=== PATIENT | male | born 1995 | race Caucasian/White ===

== ENCOUNTER 2017-06-26 14:19 | Emergency (ER) | payer OTHER ==
[~2017-06-26] VITALS: Ht 185.4 cm; Wt 110.0 kg
[2017-06-26 14:27] VITALS: Ht 185.4 cm; Wt 110.0 kg
[2017-06-26] MEDS ORDERED: SODIUM CHLORIDE 0.9% 1000ML 2,000 ML IV STA (14:59)
[2017-06-26] MEDS ORDERED: PROCHLORPERAZINE 5 MG/ML 2 ML VIAL IV STA (14:59)
[2017-06-26] MEDS ORDERED: ACETAMINOPHEN 500 MG TAB PO STA (14:59)
[2017-06-26 15:45] LABS: INFLUENZA B ANTIGEN Neg for Influ B (NEG)
[2017-06-26 15:50] VITALS: O2SAT 100
--- NOTE | 2017-06-26 16:24 | DIAGNOSTIC IMAGING REPORT ---
CT SCAN OF THE BRAIN WITHOUT IV CONTRAST CLINICAL HISTORY: Migraine headache. COMPARISON STUDY: No priors. TECHNIQUE: Unenhanced axial CT scan of the brain is performed from the vertex to the skull base. A dose lowering technique was utilized adhering to the principles of ALARA. CT DOSE: 687.98 mGy.cm FINDINGS: Brain parenchyma: The brain parenchyma is normal in appearance. There is no hemorrhage, mass effect, or evidence of acute territorial ischemia by CT criteria. Forbes-white matter is preserved. No extra-axial fluid collection is seen. Ventricles, sulci, cisterns: Normal in configuration. Intracranial vasculature: The visualized intracranial vasculature at the skull base is normal in appearance. Calvarium: Unremarkable. Sinuses and mastoids: The visualized paranasal sinuses are clear. The mastoid air cells are well pneumatized. Orbits: The bony orbits are grossly intact. IMPRESSION: No acute intracranial abnormality. Electronically signed by: Angel Braxton M.D. 06/26/2017 4:23 PM Dictated Date/Time: 06/26/2017 4:22 PM
[2017-06-26] MEDS ORDERED: KETOROLAC TROMETHAMINE 30 MG/ML VIAL IV STA (16:55)
--- NOTE | 2017-06-26 16:59 | DIAGNOSTIC IMAGING REPORT ---
TWO VIEW CHEST CLINICAL HISTORY: Pneumonia. FINDINGS: PA and lateral chest radiographs are obtained No prior studies are available for comparison at the time of dictation. The cardiomediastinal silhouette is unremarkable. The lungs and pleural spaces are clear. There is no pneumothorax. The bony thorax appears intact. IMPRESSION: No active disease in the chest. Electronically signed by: Angel Braxton M.D. 06/26/2017 4:58 PM Dictated Date/Time: 06/26/2017 4:57 PM
[2017-06-26 17:07] LABS: HEMATOCRIT 35.8 % (42-52); MEAN CELL VOLUME 85.9 fL (80-100); MEAN CORPUSCULAR HEMOGLOBIN 28.8 pg (25-34); MEAN CORPUSCULAR HGB CONC 33.5 g/dl (32-36); RED CELL DISTRIBUTION WIDTH CV 13.4 % (11.5-14.5); RED CELL DISTRIBUTION WIDTH SD 42.4 fL (36.4-46.3); WHITE BLOOD COUNT 3.68 K/uL (4.8-10.8)
[2017-06-26 17:15] LABS: ALBUMIN 3.5 gm/dl (3.4-5.0); CALCIUM 8.1 mg/dl (8.5-10.1); CREATININE 1.01 mg/dl (0.60-1.40); MEAN PLATELET VOLUME 11.5 fL (7.4-10.4); PLATELET COUNT 104 K/uL (130-400); POTASSIUM 3.2 mmol/L (3.5-5.1)
--- NOTE | 2017-06-26 17:15 | EMERGENCY ROOM VISIT NOTE ---
ED Visit Note First contact with patient: 14:48 CHIEF COMPLAINT: Headache, dizziness, shortness of breath HISTORY OF PRESENTING ILLNESS: This is a 22-year-old male who presents to the emergency department with complaint of a headache that started last night around 6 PM. He states the headache was gradual in onset, and has gotten progressively worse. States the pain involves the whole head and behind the eyes, worse with moving his head side to side, currently rates as 10/10. He took ibuprofen last night, which he states usually takes care of his headaches, but he did not have much improvement in the headache. He has had URI symptoms of cough, sore throat, and congestion for the past 2 days and has also had some fevers and chills starting last night. He states he has been feeling weak and tired today as well. He has associated symptoms of photophobia, nausea, and dizziness, but denies passing out. He has not had any vomiting. He reports a history of migraines as a child, although he states his last one was about 3 years ago, he states this headache is similar to previous migraines but seems worse than usual. He denies any neck pain or stiffness, back pain, body aches or myalgias, chest pain, shortness of breath, abdominal pain, diarrhea or constipation, bloody or black stools, or urinary symptoms. He is up-to-date on immunizations per his mother, who states he did have the meningitis vaccine. He did not have a flu shot. He has not taken any medications today for his symptoms. REVIEW OF SYSTEMS: A complete 10 point review of systems was reviewed with the patient with pertinent positives and negatives as per history of present illness. All else were negative. PAST MEDICAL HISTORY: Migraines SOCIAL HISTORY: Lives at home. Denies tobacco use, alcohol or recreational drug use. ALLERGIES: No known allergies. PHYSICAL EXAM: CONSTITUTIONAL: Pleasant and cooperative. No acute distress, but appears uncomfortable and in pain. Moderately dehydrated. Pale. HEENT: Normocephalic, atraumatic. PERRL, EOMI with no nystagmus, bilateral conjunctiva normal. TMs normal. Pharynx normal. Dry mucous membranes. NECK: Supple, full active range of motion without discomfort. No nuchal rigidity. No meningismus. No cervical adenopathy. RESPIRATORY: Diminished bilaterally with scant rhonchi, these clear with coughing. No wheezing, crackles, or stridor. Equal expansion bilaterally. CARDIOVASCULAR: Tachycardic. Regular rhythm with no murmurs, rubs or gallops. Normal peripheral perfusion. No edema. GASTROINTESTINAL: Soft, nontender, nondistended. No palpable masses or HSM. Bowel sounds present in all quadrants. MUSCULOSKELETAL: Full range of motion of all joints without discomfort. INTEGUMENTARY: No rash or other significant dermatologic conditions noted. NEUROLOGIC: Alert and oriented X 4 with normal affect. Cranial nerves II-XII grossly intact. No focal neurologic deficits noted. 5/5 strength in all 4 extremities. Sensation intact to light touch in all 4 extremities. Normal speech. ED COURSE AND MEDICAL DECISION MAKING: CC: Patient presenting with complaint of headache, dizziness, shortness of breath DIFFERENTIAL DIAGNOSIS: Includes, but not limited to migraine, tension headache , acute intracranial bleed, meningitis, mass or mass effect, sinusitis, pulmonary embolism, pneumothorax, pericarditis, pericardial effusion, pneumonia , dehydration, electrolyte abnormality, anemia, viral URI, bronchitis, influenza , among others. INTERPRETATION OF LABS: Leukopenia, anemia, thrombocytopenia. Hypokalemia with hypomagnesemia, no other significant electrolyte abnormalities, normal renal function, normal liver enzymes and lipase. Influenza A/B negative. Lactic acid WNL. UA shows large ketones, no infection. IMAGING: CT SCAN OF THE BRAIN WITHOUT IV CONTRAST CLINICAL HISTORY: Migraine headache. COMPARISON STUDY: No priors. TECHNIQUE: Unenhanced axial CT scan of the brain is performed from the vertex to the skull base. A dose lowering technique was utilized adhering to the principles of ALARA. CT DOSE: 687.98 mGy.cm FINDINGS: Brain parenchyma: The brain parenchyma is normal in appearance. There is no hemorrhage, mass effect, or evidence of acute territorial ischemia by CT criteria. Forbes-white matter is preserved. No extra-axial fluid collection is seen. Ventricles, sulci, cisterns: Normal in configuration. Intracranial vasculature: The visualized intracranial vasculature at the skull base is normal in appearance. Calvarium: Unremarkable. Sinuses and mastoids: The visualized paranasal sinuses are clear. The mastoid air cells are well pneumatized. Orbits: The bony orbits are grossly intact. IMPRESSION: No acute intracranial abnormality. ----- TWO VIEW CHEST CLINICAL HISTORY: Pneumonia. FINDINGS: PA and lateral chest radiographs are obtained No prior studies are available for comparison at the time of dictation. The cardiomediastinal silhouette is unremarkable. The lungs and pleural spaces are clear. There is no pneumothorax. The bony thorax appears intact. IMPRESSION: No active disease in the chest. ----- (CHEST FOR PE) ANGIO WITH CT DOSE: 596.46 mGy.cm HISTORY: 22 years-old Male presents with acute headache, nausea, tachycardia and shortness of breath TECHNIQUE: Multiple CTA images of the chest were obtained after the intravenous administration of 93 ml Optiray 320. Coronal and sagittal MIPS were obtained from the axial data set and were submitted for review. A dose lowering technique was utilized adhering to the principles of ALARA. COMPARISON: Chest radiographs 06/26/2017 FINDINGS: CTA: There is adequate opacification of the pulmonary arteries to the level of the lobar branches without convincing evidence of acute pulmonary embolism. Segmental and subsegmental branches are not well opacified. The thoracic aorta is normal in both course and caliber without dissection or aneurysm.Heart size is normal. CT CHEST: No dominant thyroid nodule is seen. Mild residual thymic tissue. No pathologically adenopathy by CT size criteria. There is no pneumothorax or pleural effusion. Dependent subsegmental opacities suggest atelectasis. No lobar airspace consolidation to suggest pneumonia. Central airways are patent. Mild splenomegaly, 14 cm. No acute process of the imaged upper abdomen identified. Mild bilateral gynecomastia. Bones appear intact. IMPRESSION: 1. No acute intrathoracic abnormality identified, specifically no acute aortic pathology or evidence of pulmonary thromboembolic disease. 2. Mild hepatomegaly. EKG: Shows sinus tachycardia with a rate of 120bpm, no acute ischemic changes noted by my interpretation. No previous EKG available for comparison. MEDICATION RECONCILIATION: I attest that I have personally reviewed the patient 's current medication list. INITIAL VITAL SIGNS REVIEW: I reviewed the patient's initial vital signs and interpret them as follows: T: Febrile; BP: Hypotensive; HR: Tachycardic; RR: Within normal limits; Pulse Ox: Within normal limits on room air. SUMMARY: Patient was evaluated at bedside, history and physical exam performed. Patient is alert and oriented, in no acute distress but does appear uncomfortable, noted to be moderately dehydrated and appears pale. Patient is noted to be febrile, tachycardic, and hypotensive on initial vital signs. Patient complaining of headache that is similar to previous migraines. Neurologic exam is intact with no focal deficits. There is no nuchal rigidity or meningismus on exam. EKG reviewed at bedside, noting sinus tachycardia without any ischemic changes. Orders were placed at bedside for labs, UA, blood cultures 2, 2 L IV fluid bolus, Tylenol for fever, IV Compazine for headache, chest x-ray and CT of the head to evaluate for cough/shortness of breath and headache. Patient discussed with Dr. Kirk, who agrees with my assessment and plan. Labs and imaging reviewed as above, notable for pancytopenia, hypokalemia and hypomagnesemia. Imaging is unremarkable. Replacement potassium and magnesium ordered. IV Toradol given for additional headache and fever management. On reassessment, the patient states he is feeling much better, states that he no longer has any shortness of breath. His headache is fully resolved after medications. He is defervescing appropriately after Tylenol and Toradol. He continues to have no complaints of neck pain, and no neck stiffness on repeat exam. My suspicion for meningitis at this time is very low. He is noted to be persistently tachycardic with rates in the 120s and hypotensive. He does still feel dizzy especially when he sits up or stands. Given patient's persistent tachycardia and his complaints of shortness of breath and dizziness, decision was made to perform CT of the chest to rule out PE. Bedside cardiac ultrasound was also performed, there is no evidence of a pericardial effusion, no right ventricular enlargement noted, mitral valve function appears intact and normal, overall myocardial contraction appears uniform and within normal limits by my interpretation. CT of the chest reviewed, no evidence of a PE or any other abnormalities. Patient was given a third liter of normal saline for additional hydration. Patient reassessed multiple times throughout ED stay, he remains persistently tachycardic with heart rates in the 120s-130s, though his hypotension has improved somewhat. Overall, the patient is feeling much better, but is still generally weak and slightly dizzy. Given his complaint of URI symptoms, I suspect he most likely has a viral respiratory illness. Influenza A/B is noted to be negative. Given the patient's persistent tachycardia after 3 L of fluid bolus, with pancytopenia and electrolyte abnormalities, I feel the patient would benefit from admission for further evaluation, continued hydration, and repeat labs. I [facility], who was consulted to evaluate the patient for possible admission. He gave the patient a dose of ibuprofen for fever, and ordered additional testing for Parvovirus and EBV. The patient was reassessed multiple times, noting to be completely afebrile, but is still persistently tachycardic in the 120s. The patient was offered admission overnight by Dr. Lange, however the patient now states that he would prefer to go home. He continues to appear improved clinically, and has not had any return of his headache or dizziness. Case management was involved to assist the patient in being set up for follow- up with the primary care provider. The patient was instructed that he would need to have repeat labs ordered by his PCP. Patient and his mother were updated on all results and plan for follow-up, they verbalized understanding and were agreeable to this plan. Patient was also given strict return precautions should his symptoms worsen in any way, he verbalized understanding. Patient was discharged home in stable condition and ambulatory. Current/Historical Medications No Active Prescriptions or Reported Meds Allergies Coded Allergies: No Known Allergies (Unverified , 06/26/17) Vital Signs Date Time Temp Pulse Resp B/P (MAP) Pulse Ox O2 Delivery O2 Flow Rate FiO2 06/26/17 23:30 102 18 130/78 97 06/26/17 23:00 107 18 135/74 06/26/17 22:30 37.0 120 22 118/60 98 Room Air 06/26/17 21:49 37.5 126 22 118/73 100 Room Air 06/26/17 21:02 125 24 120/79 100 Room Air 06/26/17 20:54 115 06/26/17 20:32 112 18 124/66 100 Room Air 06/26/17 18:32 115 22 105/49 100 Room Air 06/26/17 17:00 37.6 119 24 101/41 95 Room Air 06/26/17 16:55 113 06/26/17 16:10 123 18 106/51 98 Room Air 06/26/17 15:50 100 Room Air 06/26/17 14:27 38.2 126 20 96/51 99 Room Air Laboratory Results 06/26/17 16:37 Red Blood Count 4.17, Mean Corpuscular Volume 85.9, Mean Corpuscular Hemoglobin 28.8, Mean Corpuscular Hemoglobin Concent 33.5, Mean Platelet Volume 11.5, Neutrophils (%) (Auto) 76.6, Lymphocytes (%) (Auto) 9.5, Monocytes (%) (Auto) 12.8, Eosinophils (%) (Auto) 0.0, Basophils (%) (Auto) 0.3, Neutrophils # (Auto ) 2.82, Lymphocytes # (Auto) 0.35, Monocytes # (Auto) 0.47, Eosinophils # (Auto ) 0.00, Basophils # (Auto) 0.01 06/26/17 16:37 Test 06/26/17 15:21 06/26/17 16:37 06/26/17 16:40 06/26/17 18:36 Influenza Type A Antigen Neg for Influ A (NEG) Influenza Type B Antigen Neg for Influ B (NEG) White Blood Count 3.68 K/uL (4.8-10.8) Red Blood Count 4.17 M/uL (4.7-6.1) Hemoglobin 12.0 g/dL (14.0-18.0) Hematocrit 35.8 % (42-52) Mean Corpuscular Volume 85.9 fL (80-100) Mean Corpuscular Hemoglobin 28.8 pg (25-34) Mean Corpuscular Hemoglobin Concent 33.5 g/dl (32-36) Platelet Count 104 K/uL (130-400) Mean Platelet Volume 11.5 fL (7.4-10.4) Neutrophils (%) (Auto) 76.6 % Lymphocytes (%) (Auto) 9.5 % Monocytes (%) (Auto) 12.8 % Eosinophils (%) (Auto) 0.0 % Basophils (%) (Auto) 0.3 % Neutrophils # (Auto) 2.82 K/uL (1.4-6.5) Lymphocytes # (Auto) 0.35 K/uL (1.2-3.4) Monocytes # (Auto) 0.47 K/uL (0.11-0.59) Eosinophils # (Auto) 0.00 K/uL (0-0.5) Basophils # (Auto) 0.01 K/uL (0-0.2) RDW Standard Deviation 42.4 fL (36.4-46.3) RDW Coefficient of Variation 13.4 % (11.5-14.5) Immature Granulocyte % (Auto) 0.8 % Immature Granulocyte # (Auto) 0.03 K/uL (0.00-0.02) Platelet Estimate DECREASED Anion Gap 8.0 mmol/L (3-11) Est Creatinine Clear Calc Drug Dose 150.4 ml/min Estimated GFR () 122.7 Estimated GFR (Non- 105.8 BUN/Creatinine Ratio 11.7 (10-20) Calcium Level 8.1 mg/dl (8.5-10.1) Magnesium Level 1.4 mg/dl (1.8-2.4) Total Bilirubin 0.6 mg/dl (0.2-1) Direct Bilirubin 0.1 mg/dl (0-0.2) Aspartate Amino Transf (AST/SGOT) 17 U/L (15-37) Alanine Aminotransferase (ALT/SGPT) 15 U/L (12-78) Alkaline Phosphatase 57 U/L (45-117) Total Protein 6.6 gm/dl (6.4-8.2) Albumin 3.5 gm/dl (3.4-5.0) Lipase 141 U/L (73-393) Thyroid Stimulating Hormone (TSH) 0.344 uIu/ml (0.300-4.500) Monoscreen NEG (NEG) Bedside Lactic Acid Venous 1.46 mmol/L (0.90-1.70) Urine Color YELLOW Urine Appearance CLEAR (CLEAR) Urine pH 5.5 (4.5-7.5) Urine Specific [place] 1.016 (1.000-1.030) Urine Protein NEG (NEG) Urine Glucose (UA) NEG (NEG) Urine Ketones 3+ (NEG) Urine Occult Blood NEG (NEG) Urine Nitrite NEG (NEG) Urine Bilirubin NEG (NEG) Urine Urobilinogen NEG (NEG) Urine Leukocyte Esterase NEG (NEG) Medications Administered Medications (Trade) Dose Ordered Sig/Elizabeth Route Start Time Stop Time Status Last Admin Dose Admin Acetaminophen (Tylenol Tab) 1,000 mg NOW STAT PO 06/26/17 14:59 06/26/17 15:03 DC 06/26/17 15:41 1,000 MG Sodium Chloride 2,000 ml @ 999 mls/hr Q2H1M STAT IV 06/26/17 14:59 06/26/17 16:59 DC 06/26/17 16:08 999 MLS/HR Prochlorperazine Edisylate (Compazine Inj) 10 mg NOW STAT IV 06/26/17 14:59 06/26/17 15:03 DC 06/26/17 16:08 10 MG Ketorolac Tromethamine (Toradol Inj) 15 mg NOW STAT IV 06/26/17 16:55 06/26/17 16:56 DC 06/26/17 17:00 15 MG Sodium Chloride 1,000 ml @ 999 mls/hr Q1H1M STAT IV 06/26/17 19:22 06/26/17 20:22 DC 06/26/17 19:22 999 MLS/HR Potassium Chloride (Kcl 10 Meq / Wtr) 20 meq NOW STAT IV 06/26/17 19:23 06/26/17 19:24 DC 06/26/17 20:31 20 MEQ Magnesium Sulfate (Magnesium Sulfate) 2 gm NOW STAT IV 06/26/17 19:24 06/26/17 19:25 DC 06/26/17 20:31 2 GM Ibuprofen (Motrin Tab) 600 mg STK-MED ONCE .ROUTE 06/26/17 21:46 06/26/17 21:47 DC 06/26/17 21:48 600 MG Departure Information Impression Primary Impression: Migraine Additional Impressions: Tachycardia Hypokalemia Hypomagnesemia Pancytopenia Dehydration, moderate Dispostion Home / Self-Care Condition GOOD Prescriptions No Active Prescriptions or Reported Meds Referrals No Doctor, Assigned (PCP) Patient Instructions ED Dehydration, ED Headache Migraine, ED Potassium Deficiency, [facility] Additional Instructions You were evaluated and treated in the emergency department today for your headache, cough and shortness of breath, fevers, and dehydration. On labs today, you were found to have low potassium, low magnesium, dehydration , and pancytopenia (low white blood cells, low red blood cells, and low platelets). You were found to be quite dehydrated today, continue to push fluids for the next 2 days to help yourself rehydrate. Some suggestions include: - Water is the IDEAL replacement for lost fluids. You should initially sip at the water to help facilitate increased intestinal absorption rate and to decrease the possibility of nausea/vomiting. - Carbohydrate/Electrolyte-Containing Drinks (i.e. Gatorade, Powerade, Pedialyte). All of these are good choices, but it is important to remember that all of these drinks contain a high concentration of sugar. - Popsicles, ice chips, and fruit juices are all other options. - My FAVORITE dehydration remedy is to mix a 1:1 solution of bottled Gatorade with bottled water. This dilution allows for a palatable flavor with added benefit of a reduction in the amount of sugar consumption. Rest today in a quiet, peaceful, dark environment and get a full 8-10 hrs of sleep tonight. Avoid loud noises, smoke/smoking, alcohol, bright lights, stress, or physical exertion today to minimize the chance the headache may return. You may take ibuprofen and/or Tylenol as needed for fevers and headaches. Please follow-up with the primary care provider at the next available appointment. You will need to have repeat blood work ordered by your PCP, which should include a CBC with differential and a BMP. Take this paperwork with you to your appointment. Please return to the ER immediately for any worsening dizziness or passing out, worsening headache, vision problems, neck stiffness/pain, persistent fevers, severe vomiting, chest pain or difficulty breathing, or any other concerns or worsening of your condition. Work Instructions Return To Work: 3 days Problem Qualifiers Primary Impression: Migraine Migraine type: unspecified Status migrainosus presence: without status migrainosus Intractability: not intractable Qualified Codes: G43.909 - Migraine, unspecified, not intractable, without status migrainosus
[2017-06-26 17:17] LABS: BASO % 0.3 %; BASO ABS # 0.01 K/uL (0-0.2); IG# 0.03 K/uL (0.00-0.02); LYMPH % 9.5 %; LYMPH ABS # 0.35 K/uL (1.2-3.4); MONO % 12.8 %; MONO ABS # 0.47 K/uL (0.11-0.59); NEUT % 76.6 %; NEUT ABS # 2.82 K/uL (1.4-6.5)
[2017-06-26 17:18] LABS: TOTAL PROTEIN 6.6 gm/dl (6.4-8.2)
[2017-06-26] MEDS ORDERED: SODIUM CHLORIDE 0.9% 1000ML 1,000 ML IV STA (19:22)
[2017-06-26] MEDS ORDERED: POTASSIUM CHLORIDE 10 MEQ / 100ML WTR IV STA (19:23)
[2017-06-26] MEDS ORDERED: MAGNESIUM SULFATE 1GM / D5W 1 GM BAG IV STA (19:24)
[2017-06-26] MEDS ORDERED: OPTIRAY 320 IV PRN (19:30)
--- NOTE | 2017-06-26 20:29 | DIAGNOSTIC IMAGING REPORT ---
(CHEST FOR PE) ANGIO WITH CT DOSE: 596.46 mGy.cm HISTORY: 22 years-old Male presents with acute headache, nausea, tachycardia and shortness of breath TECHNIQUE: Multiple CTA images of the chest were obtained after the intravenous administration of 93 ml Optiray 320. Coronal and sagittal MIPS were obtained from the axial data set and were submitted for review. A dose lowering technique was utilized adhering to the principles of ALARA. COMPARISON: Chest radiographs 06/26/2017 FINDINGS: CTA: There is adequate opacification of the pulmonary arteries to the level of the lobar branches without convincing evidence of acute pulmonary embolism. Segmental and subsegmental branches are not well opacified. The thoracic aorta is normal in both course and caliber without dissection or aneurysm.Heart size is normal. CT CHEST: No dominant thyroid nodule is seen. Mild residual thymic tissue. No pathologically adenopathy by CT size criteria. There is no pneumothorax or pleural effusion. Dependent subsegmental opacities suggest atelectasis. No lobar airspace consolidation to suggest pneumonia. Central airways are patent. Mild splenomegaly, 14 cm. No acute process of the imaged upper abdomen identified. Mild bilateral gynecomastia. Bones appear intact. IMPRESSION: 1. No acute intrathoracic abnormality identified, specifically no acute aortic pathology or evidence of pulmonary thromboembolic disease. 2. Mild hepatomegaly. The above report was generated using voice recognition software. It may contain grammatical, syntax or spelling errors. Electronically signed by: Storm Chan M.D. 06/26/2017 8:28 PM Dictated Date/Time: 06/26/2017 8:22 PM
[2017-06-26] MEDS ORDERED: IBUPROFEN 600 MG TAB ONE (21:46)
[2017-06-26] MEDS ORDERED: IBUPROFEN 600 MG TAB PO STA (22:08)
--- NOTE | 2017-06-26 22:21 | History and Physical ---
History & Physical Date & Time of Service: Jun 26, 2017 at 22:04 Chief Complaint: Severe Headache, Vertigo, Nausea Primary Care Physician: No Doctor, Assigned History of Present Illness Source: patient 22 y/o M history of migraine headaches. The pt developed a fever, rigors, and upper respiratory symptoms earlier in the day. His fever persisted as did his MORENO, prompting him to attend the hospital. The pt's MORENO was comparable to previous migraines and was not accompanied by neck pain/stiffness or photophobia. His MORENO responded to analgesics provided in the ER. A fever was confirmed on arrival to the hospital. Initial labs are notable for mild pancytopenia in addition to mild hypokalemia and hypomagnesemia. The pt denies any recent sick contacts. 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 Smoking Status: Never Smoker Allergies Coded Allergies: No Known Allergies (Unverified , 06/26/17) Home Medications No Active Prescriptions or Reported Meds Review of Systems Constitutional: + fever, + chills, + sweats, + weakness, + fatigue Eyes: No worsening of vision ENT: No hearing loss, No unusual epistaxis, No nasal symptoms Respiratory: + cough, + sputum, No wheezing, No shortness of breath Cardiovascular: No chest pain, No orthopnea, No PND Abdomen: No pain, No nausea, No vomiting Musculoskeletal: No joint pain Genitourinary - Male: No hematuria, No dysuria Neurologic: No memory loss, No paralysis, No weakness Psychiatric: No depression symptoms Endocrine: + fatigue Hematologic / Lymphatic: No abnormal bleeding/bruising Integumentary: No rash Allergic / Immunologic: No environmental allergies Physical Exam Vital Signs Date Time Temp Pulse Resp B/P (MAP) Pulse Ox O2 Delivery O2 Flow Rate FiO2 06/26/17 21:02 125 24 120/79 100 Room Air 06/26/17 20:54 115 06/26/17 20:32 112 18 124/66 100 Room Air 06/26/17 18:32 115 22 105/49 100 Room Air 06/26/17 17:00 37.6 119 24 101/41 95 Room Air 06/26/17 16:55 113 06/26/17 16:10 123 18 106/51 98 Room Air 06/26/17 15:50 100 Room Air 06/26/17 14:27 38.2 126 20 96/51 99 Room Air General Appearance: WD/WN, no apparent distress Head: normocephalic Eyes: normal inspection ENT: normal ENT inspection, pharynx normal Neck: supple, no JVD Respiratory/Chest: chest non-tender, lungs clear Cardiovascular: no edema, no gallop, no JVD, + tachycardia Abdomen/GI: normal bowel sounds, non tender, soft Back: normal inspection, no CVA tenderness Extremities/Musculoskelatal: normal inspection, no calf tenderness, normal capillary refill Neurologic/Psych: family law paralegal II-XII nml as tested, no motor/sensory deficits, alert, oriented x 3 Skin: normal color Diagnostics Laboratory Results Results Past 24 Hours Test 06/26/17 15:21 06/26/17 16:37 06/26/17 16:40 06/26/17 18:36 Range/Units Influenza Type A Antigen Neg for Influ A NEG Influenza Type B Antigen Neg for Influ B NEG White Blood Count 3.68 4.8-10.8 K/uL Red Blood Count 4.17 4.7-6.1 M/uL Hemoglobin 12.0 14.0-18.0 g/dL Hematocrit 35.8 42-52 % Mean Corpuscular Volume 85.9 80-100 fL Mean Corpuscular Hemoglobin 28.8 25-34 pg Mean Corpuscular Hemoglobin Concent 33.5 32-36 g/dl Platelet Count 104 130-400 K/uL Mean Platelet Volume 11.5 7.4-10.4 fL Neutrophils (%) (Auto) 76.6 % Lymphocytes (%) (Auto) 9.5 % Monocytes (%) (Auto) 12.8 % Eosinophils (%) (Auto) 0.0 % Basophils (%) (Auto) 0.3 % Neutrophils # (Auto) 2.82 1.4-6.5 K/uL Lymphocytes # (Auto) 0.35 1.2-3.4 K/uL Monocytes # (Auto) 0.47 0.11-0.59 K/uL Eosinophils # (Auto) 0.00 0-0.5 K/uL Basophils # (Auto) 0.01 0-0.2 K/uL RDW Standard Deviation 42.4 36.4-46.3 fL RDW Coefficient of Variation 13.4 11.5-14.5 % Immature Granulocyte % (Auto) 0.8 % Immature Granulocyte # (Auto) 0.03 0.00-0.02 K/uL Platelet Estimate DECREASED Sodium Level 135 136-145 mmol/L Potassium Level 3.2 3.5-5.1 mmol/L Chloride Level 106 98-107 mmol/L Carbon Dioxide Level 21 21-32 mmol/L Anion Gap 8.0 3-11 mmol/L Blood Urea Nitrogen 12 7-18 mg/dl Creatinine 1.01 0.60-1.40 mg/dl Est Creatinine Clear Calc Drug Dose 150.4 ml/min Estimated GFR () 122.7 Estimated GFR (Non- 105.8 BUN/Creatinine Ratio 11.7 10-20 Random Glucose 94 70-99 mg/dl Calcium Level 8.1 8.5-10.1 mg/dl Magnesium Level 1.4 1.8-2.4 mg/dl Total Bilirubin 0.6 0.2-1 mg/dl Direct Bilirubin 0.1 0-0.2 mg/dl Aspartate Amino Transf (AST/SGOT) 17 15-37 U/L Alanine Aminotransferase (ALT/SGPT) 15 12-78 U/L Alkaline Phosphatase 57 45-117 U/L Total Protein 6.6 6.4-8.2 gm/dl Albumin 3.5 3.4-5.0 gm/dl Lipase 141 73-393 U/L Monoscreen NEG NEG Bedside Lactic Acid Venous 1.46 0.90-1.70 mmol/L Urine Color YELLOW Urine Appearance CLEAR CLEAR Urine pH 5.5 4.5-7.5 Urine Specific Garber 1.016 1.000-1.030 Urine Protein NEG NEG Urine Glucose (UA) NEG NEG Urine Ketones 3+ NEG Urine Occult Blood NEG NEG Urine Nitrite NEG NEG Urine Bilirubin NEG NEG Urine Urobilinogen NEG NEG Urine Leukocyte Esterase NEG NEG Microbiology Results 06/26/17 Blood Culture, Received Pending 06/26/17 Blood Culture, Received Pending Diagnostic Radiology CTA: 1. No acute intrathoracic abnormality identified, specifically no acute aortic pathology or evidence of pulmonary thromboembolic disease. 2. Mild hepatomegaly. Impression Assessment and Plan 22 y/o M history of migraine headaches. The pt developed a fever, rigors, and upper respiratory symptoms earlier in the day. His fever persisted as did his MORENO, prompting him to attend the hospital. The pt's MORENO was comparable to previous migraines and was not accompanied by neck pain/stiffness or photophobia. His MORENO responded to analgesics provided in the ER. A fever was confirmed on arrival to the hospital. Initial labs are notable for mild pancytopenia in addition to mild hypokalemia and hypomagnesemia. The pt denies any recent sick contacts. The pt is likely suffering from a viral illness - his symptoms began as a URI and a chest CT is clear. Mild pancytopenia would not be unusual with a viral illness. Electrolyte abnormalities would be attributed to a fever, diaphoresis and subsequent dehydration. As the pt does not have a significant history and a bacterial infection or meningitis are unlikely, we believe it would be reasonable to pursue outpt treatment. We would recommend Tylenol and/or ibuprofen, maintaining hydration with an electrolyte drink and following up in a few days to recheck labs. If the pt's fevers persist, he is unable to tolerate PO and maintain hydration and he does not exhibit improvement, we would recommend that he return to the hospital. It is noted that due to his HR, the pt was offered admission for IVF and overnight monitoring. The pt does not wish to remain in the hospital. I have discussed the above with the pt, family and the ER attending. Please note that the above is a consult as the pt is discharged from the ER Resuscitation Status VTE Prophylaxis Will order VTE Prophylaxis: No Reason for no VTE drug order: Treatment not indicated Reason no Mechanical VTE Order: Treatment not indicated
[2017-06-26 22:30] VITALS: TEMP 37
[2017-06-26 23:54] VITALS: BP 130/78; PULSE 102; O2SAT 97
[2017-07-01 00:30] LABS: PARVOVIRUS IgM INDEX 0.2 (<0.9)
== END 2017-06-26 23:54 | disposition home or self-care (01) ==
LOC: C.EDB 14:22 → C.EDA 23:54
DX: G43.909 Migraine, unspecified, not intractable, without status migrainosus (principal); R00.0 Tachycardia, unspecified; E87.6 Hypokalemia; E83.42 Hypomagnesemia; D61.818 Other pancytopenia; E86.0 Dehydration; D69.6 Thrombocytopenia, unspecified; I95.9 Hypotension, unspecified

== ENCOUNTER → 2017-07-09 | Outpatient (CLI) | payer OTHER ==
[2017-07-09 17:25] LABS: BASO % 0.2 %; BASO ABS # 0.01 K/uL (0-0.2); EOS % 0.6 %; EOS ABS # 0.04 K/uL (0-0.5); HEMATOCRIT 41.2 % (42-52); HEMOGLOBIN 13.2 g/dL (14.0-18.0); IG# 0.02 K/uL (0.00-0.02); LYMPH % 24.3 %; LYMPH ABS # 1.59 K/uL (1.2-3.4); MEAN CELL VOLUME 88.2 fL (80-100); MEAN CORPUSCULAR HEMOGLOBIN 28.3 pg (25-34); MEAN PLATELET VOLUME 11.2 fL (7.4-10.4); MONO % 9.5 %; MONO ABS # 0.62 K/uL (0.11-0.59); NEUT % 65.1 %; NEUT ABS # 4.27 K/uL (1.4-6.5); PLATELET COUNT 218 K/uL (130-400); RED CELL DISTRIBUTION WIDTH CV 13.6 % (11.5-14.5); RED CELL DISTRIBUTION WIDTH SD 43.7 fL (36.4-46.3); WHITE BLOOD COUNT 6.55 K/uL (4.8-10.8)
[2017-07-09 17:26] LABS: BLOOD UREA NITROGEN 13 mg/dl (7-18); CALCIUM 8.9 mg/dl (8.5-10.1); CARBON DIOXIDE 29 mmol/L (21-32); CREATININE 0.88 mg/dl (0.60-1.40); GLUCOSE 89 mg/dl (70-99); POTASSIUM 3.9 mmol/L (3.5-5.1); SODIUM 140 mmol/L (136-145)
== END | disposition home or self-care (01) ==
LOC: C.LABBFT 13:39
PROVIDERS: ATTEND Internal Medicine
DX: D61.818 Other pancytopenia (principal); E83.42 Hypomagnesemia; E87.6 Hypokalemia; R16.0 Hepatomegaly, not elsewhere classified

== ENCOUNTER → 2017-07-10 | Outpatient (CLI) | payer OTHER ==
--- NOTE | 2017-07-10 10:18 | DIAGNOSTIC IMAGING REPORT ---
ABDOMINAL ULTRASOUND, RIGHT UPPER QUADRANT HISTORY: Hepatomegaly. COMPARISON: Chest CT June 26, 2017. FINDINGS: Liver morphology is normal. Liver is normal in size, measuring 13 cm in craniocaudal dimension. There is no biliary ductal dilatation. No gallstones are identified. The pancreatic body and head are normal. Tail is partially obscured. There is no right hydronephrosis. IMPRESSION: 1. No significant abnormality identified within the right upper quadrant. 2. Normal size liver. Electronically signed by: Ed Thompson M.D. 07/10/2017 10:16 AM Dictated Date/Time: 07/10/2017 10:15 AM
== END | disposition home or self-care (01) ==
LOC: C.ULTR 09:39
PROVIDERS: ATTEND Internal Medicine
DX: R16.0 Hepatomegaly, not elsewhere classified (principal)

== ENCOUNTER → 2017-08-02 | Outpatient (CLI) | payer OTHER ==
[2017-08-02 12:57] LABS: BASO % 0.2 %; BASO ABS # 0.01 K/uL (0-0.2); EOS % 0.8 %; EOS ABS # 0.04 K/uL (0-0.5); HEMATOCRIT 41.1 % (42-52); HEMOGLOBIN 13.6 g/dL (14.0-18.0); IG# 0.01 K/uL (0.00-0.02); LYMPH % 28.7 %; LYMPH ABS # 1.37 K/uL (1.2-3.4); MEAN CELL VOLUME 89.2 fL (80-100); MEAN CORPUSCULAR HEMOGLOBIN 29.5 pg (25-34); MEAN CORPUSCULAR HGB CONC 33.1 g/dl (32-36); MEAN PLATELET VOLUME 11.5 fL (7.4-10.4); MONO % 12.8 %; MONO ABS # 0.61 K/uL (0.11-0.59); NEUT % 57.3 %; NEUT ABS # 2.73 K/uL (1.4-6.5); PLATELET COUNT 127 K/uL (130-400); RED CELL DISTRIBUTION WIDTH CV 14.8 % (11.5-14.5); RETIC COUNT % 1.4 % (0.5-2.0); WHITE BLOOD COUNT 4.77 K/uL (4.8-10.8)
== END | disposition home or self-care (01) ==
LOC: C.LABBFT 10:30
PROVIDERS: ATTEND Internal Medicine
DX: D64.9 Anemia, unspecified (principal)

== ENCOUNTER 2019-01-21 09:50 | Inpatient (IN) ==
[2019-01-21 10:43] LABS: Appearance Urine Clear (Clear); Bacteria Urine Automated Negative (Negative); Bilirubin Urine Negative (Negative); Blood Urine Trace (Negative); Color Urine Yellow; Glucose Urine UA Negative (Negative); Ketones Urine Negative (Negative); Leukocyte Esterase Urine Negative (Negative); Nitrite Urine Negative (Negative); Protein Urine Negative (Negative); RBC Urine Automated 0-4 /hpf (0-4); Specific Gravity Urine 1.015 (1.000-1.030); Urobilinogen Urine Negative (Negative); pH Urine 6.5 (4.5-7.5)
[2019-01-21 10:48] LABS: Basophils # (auto) 0.01 K/uL (0-0.2); Basophils % (auto) 0.2 %; Eosinophils # (auto) 0.03 K/uL (0-0.5); Eosinophils % (auto) 0.5 %; Hematocrit (blood only) 42.6 % (42-52); Hemoglobin 14.9 g/dL (14.0-18.0); Immature Granulocytes # (auto) 0.01 K/uL (0.00-0.02); Immature Granulocytes % (auto) 0.2 %; Lymphocytes # (auto) 1.03 K/uL (1.2-3.4); Lymphocytes % (auto) 17.8 %; Mean Corpuscular Hemoglobin 33.8 pg (25-34); Mean Corpuscular Volume 96.6 fL (80-100); Mean Platelet Volume 11.2 fL (7.4-10.4); Monocytes # (auto) 0.59 K/uL (0.11-0.59); Monocytes % (auto) 10.2 %; Neutrophils # (auto) 4.13 K/uL (1.4-6.5); Neutrophils % (auto) 71.1 %; Platelet Count 127 K/uL (130-400); RDW Coefficient of Variation 12.5 % (11.5-14.5); RDW Standard Deviation 44.3 fL (36.4-46.3); Red Blood Count 4.41 M/uL (4.7-6.1)
[2019-01-21 10:59] LABS: Amphetamines+Metham, Urine Neg (Neg); Barbiturates, Urine Neg (Neg); Benzodiazepine, Urine Neg (Neg); Cocaine, Urine Neg (Neg); MDMA (Ecstacy), Urine Neg (Neg); Methadone, Urine Neg (Neg); Opiate, Urine Neg (Neg); Phencyclidine, Urine Neg (Neg)
[2019-01-21 11:09] LABS: Albumin Level 3.9 gm/dl (3.4-5.0); BUN Creatinine Ratio 7.7 (10-20); Calcium 8.8 mg/dl (8.5-10.1); Creatinine Clr Calc Pharmacy 166.7 ml/min; Est GFR (Non-African American) 122.5; Potassium 3.4 mmol/L (3.5-5.1)
[2019-01-21 11:11] LABS: Acetaminophen < 2 ug/ml (10-30); Salicylate < 1.7 mg/dl (2.8-20)
[2019-01-21 11:19] LABS: Albumin Globulin Ratio 1.3 (0.9-2); Bilirubin,Total 1.2 mg/dl (0.2-1); Globulin 3.1 gm/dl (2.5-4.0); Thyroid Stimulating Hormone 0.6 uIu/ml (0.300-4.500)
--- NOTE | 2019-01-21 11:28 | Emergency Department Note ---
Entered by Naga Borja acting as a scribe for History of Present Illness General Chief Complaint: Mental Health Evaluation Stated Complaint: MENTAL HEALTH EVALUATION Time Seen by Provider: 01/21/19 10:20 Source: patient History of Present Illness Provider complaint: feels depressed Onset (ago): unknown Duration: getting worse History of same: Yes Context: + significant life stressor Associated psychiatric symptoms: + depression and + suicidal ideation; no homicidal ideation Associated symptoms: + denies other symptoms If self harm: + admits thoughts of self harm The patient is a 23 year old male who presents to the Emergency Room for a mental health evaluation due to worsening depression and suicidal thoughts. The patient states he has a history of both of these symptoms and has been treated at the [facility] when he was in 8th grade. The patient notes he does have a plan for suicide but has no attempted any. Currently the patient's plan is to either shoot himself or cut his wrist. The patient reports that this increase in depression and SI is due to significant life stressors. The patient explains that he does not like his job due to the stress. He also mentioned that his aunt just had a stroke due to alcohol abuse. The patient has no outpatient therapist nor is he on any medications. Home Medications Home Medications Medication Instructions Recorded Confirmed Type No Known Home Medications 01/21/19 01/21/19 History Allergies Allergy/AdvReac Type Severity Reaction Status Date / Time No Known Allergies Allergy Verified 01/21/19 11:19 Past Med/Surg History Medical History Depression Family History Mother Hypertension Brother Hypertension Aunt Stroke Uncle Myocardial infarction Social History Preferred Language: Turkish Communication Ability: Effective Smudger Required: No Beliefs That Will Affect Care: None Feels Safe at Home: Yes Smoking Status: Never smoker Review of Systems See HPI for pertinent positives & negatives. and A total of 10 systems reviewed and were otherwise negative Physical Exam Vital Signs Vital Signs - 24 hr 01/21/19 10:03 01/21/19 13:10 Temperature 98.1 F Temperature Source Oral Sepsis Recent Fever Within 48 Hours No Sepsis Action Taken by Nursing No Action Required Pulse Rate 84 88 Respiratory Rate 20 18 Respiratory Effort / Characteristics Non-Labored Respiratory Depth Normal Blood Pressure 108/68 159/86 H Blood Pressure Mean 81 Pulse Oximetry 98 99 Oxygen Delivery Method Room Air Room Air GENERAL: Awake, alert, well-appearing, in no distress HENT: Normocephalic, atraumatic. Oropharynx unremarkable. EYES: Normal conjunctiva. Sclera non-icteric. NECK: Supple. No nuchal rigidity. FROM. No masses. RESPIRATORY: Clear to auscultation. No wheezes. No rales. Normal respiratory effort. CARDIAC: Normal rate. Normal rhythm. No murmurs. No rubs. Extremities warm and well perfused. Pulses equal. No JVD. GI: Soft, non-distended. No tenderness to palpation. No rebound or guarding. No masses. RECTAL: Deferred. MUSCULOSKELETAL: Atraumatic. Chest examination reveals no tenderness. The back is symmetrical on inspection without obvious abnormality. There is no CVA tenderness to palpation. No joint edema. LOWER EXTREMITIES: Calves are equal size bilaterally and non-tender. No edema. No discoloration. NEURO: Normal sensorium. No sensory or motor deficits noted. Course 1021: Past medical records reviewed. The patient was evaluated in room A05, and a complete history and physical examination were performed. The psych pillowcase cutter then performed her own evaluation of the patient. 1310: The patient was accepted to [address] [place] [address] for further psychiatric evaluation and treatment. Medical Decision Making Differential Diagnosis Differential diagnoses considered include mood disorder, infection, hypoglycemia, electrolyte abnormalities, cardiac sources, intracerebral event, toxicologic, neurologic, as well as others. Medical Records Attestation: I reviewed the patient's medical records. Home Medications Current Medication List: was personally reviewed by mn Laboratory Data Attestation: I reviewed the patient's lab results. Result diagrams: 01/21/19 10:32 01/21/19 10:32 Lab Results 01/21/19 01/21/19 01/21/19 Range/Units 10:24 10:24 10:32 WBC 5.80 (4.8-10.8) K/uL RBC 4.41 L (4.7-6.1) M/uL Hgb 14.9 (14.0-18.0) g/dL Hct 42.6 (42-52) % MCV 96.6 (80-100) fL MCH 33.8 (25-34) pg MCHC 35.0 (32-36) g/dL RDW Std Deviation 44.3 (36.4-46.3) fL RDW Coeff of Jarrett 12.5 (11.5-14.5) % Plt Count 127 L (130-400) K/uL MPV 11.2 H (7.4-10.4) fL Immature Gran % (Auto) 0.2 % Neut % (Auto) 71.1 % Lymph % (Auto) 17.8 % Saunders % (Auto) 10.2 % Eos % (Auto) 0.5 % Baso % (Auto) 0.2 % Immature Gran # (Auto) 0.01 (0.00-0.02) K/uL Neut # (Auto) 4.13 (1.4-6.5) K/uL Lymph # (Auto) 1.03 L (1.2-3.4) K/uL Saunders # (Auto) 0.59 (0.11-0.59) K/uL Eos # (Auto) 0.03 (0-0.5) K/uL Baso # (Auto) 0.01 (0-0.2) K/uL Sodium (136-145) mmol/L Potassium (3.5-5.1) mmol/L Chloride (98-107) mmol/L Carbon Dioxide (21-32) mmol/L Anion Gap (3-11) BUN (7-18) mg/dl Creatinine (0.6-1.4) mg/dl Est Cr Clr Drug Dosing ml/min Est GFR ( Amer) Est GFR (Non-Af Amer) BUN/Creatinine Ratio (10-20) Glucose (70-99) mg/dl Calcium (8.5-10.1) mg/dl Total Bilirubin (0.2-1) mg/dl AST (15-37) U/L ALT (12-78) U/L Alkaline Phosphatase (45-117) U/L Total Protein (6.4-8.2) gm/dl Albumin (3.4-5.0) gm/dl Globulin (2.5-4.0) gm/dl Albumin/Globulin Ratio (0.9-2) TSH (0.300-4.500) uIu/ml Urine Color Yellow Urine Appearance Clear (Clear) Urine pH 6.5 (4.5-7.5) Ur Specific Bradshaw 1.015 (1.000-1.030) Urine Protein Negative (Negative) Urine Glucose (UA) Negative (Negative) Urine Ketones Negative (Negative) Urine Blood Trace H (Negative) Urine Nitrite Negative (Negative) Urine Bilirubin Negative (Negative) Urine Urobilinogen Negative (Negative) Ur Leukocyte Esterase Negative (Negative) Urine WBC (Auto) 1-5 (0-5) /hpf Urine RBC (Auto) 0-4 (0-4) /hpf U Hyaline Cast (Auto) 1-5 (0-5) /lpf U Epithel Cells (Auto) 10-20 H (0-5) /lpf Urine Bacteria (Auto) Negative (Negative) Salicylates (2.8-20) mg/dl Urine Opiates Screen Neg (Neg) Ur Methadone, Qual Neg (Neg) Acetaminophen (10-30) ug/ml Urine Barbiturates Neg (Neg) Ur Phencyclidine (PCP) Neg (Neg) U Amphetamin/Meth Scrn Neg (Neg) MDMA (Ecstasy) Screen Neg (Neg) U Benzodiazepines Scrn Neg (Neg) Ur Cocaine Metabolite Neg (Neg) U Marijuana (THC) Screen Neg (Neg) Ethyl Alcohol mg/dL (0-3) mg/dl 01/21/19 01/21/19 01/21/19 Range/Units 10:32 10:32 10:32 WBC (4.8-10.8) K/uL RBC (4.7-6.1) M/uL Hgb (14.0-18.0) g/dL Hct (42-52) % MCV (80-100) fL MCH (25-34) pg MCHC (32-36) g/dL RDW Std Deviation (36.4-46.3) fL RDW Coeff of Jarrett (11.5-14.5) % Plt Count (130-400) K/uL MPV (7.4-10.4) fL Immature Gran % (Auto) % Neut % (Auto) % Lymph % (Auto) % Saunders % (Auto) % Eos % (Auto) % Baso % (Auto) % Immature Gran # (Auto) (0.00-0.02) K/uL Neut # (Auto) (1.4-6.5) K/uL Lymph # (Auto) (1.2-3.4) K/uL Saunders # (Auto) (0.11-0.59) K/uL Eos # (Auto) (0-0.5) K/uL Baso # (Auto) (0-0.2) K/uL Sodium 141 (136-145) mmol/L Potassium 3.4 L (3.5-5.1) mmol/L Chloride 108 H (98-107) mmol/L Carbon Dioxide 28 (21-32) mmol/L Anion Gap 5.0 (3-11) BUN 7 (7-18) mg/dl Creatinine 0.87 (0.6-1.4) mg/dl Est Cr Clr Drug Dosing 166.7 ml/min Est GFR ( Amer) 142.0 Est GFR (Non-Af Amer) 122.5 BUN/Creatinine Ratio 7.7 L (10-20) Glucose 88 (70-99) mg/dl Calcium 8.8 (8.5-10.1) mg/dl Total Bilirubin 1.2 H (0.2-1) mg/dl AST 14 L (15-37) U/L ALT 15 (12-78) U/L Alkaline Phosphatase 57 (45-117) U/L Total Protein 7.0 (6.4-8.2) gm/dl Albumin 3.9 (3.4-5.0) gm/dl Globulin 3.1 (2.5-4.0) gm/dl Albumin/Globulin Ratio 1.3 (0.9-2) TSH 0.600 (0.300-4.500) uIu/ml Urine Color Urine Appearance (Clear) Urine pH (4.5-7.5) Ur Specific Bradshaw (1.000-1.030) Urine Protein (Negative) Urine Glucose (UA) (Negative) Urine Ketones (Negative) Urine Blood (Negative) Urine Nitrite (Negative) Urine Bilirubin (Negative) Urine Urobilinogen (Negative) Ur Leukocyte Esterase (Negative) Urine WBC (Auto) (0-5) /hpf Urine RBC (Auto) (0-4) /hpf U Hyaline Cast (Auto) (0-5) /lpf U Epithel Cells (Auto) (0-5) /lpf Urine Bacteria (Auto) (Negative) Salicylates < 1.7 L (2.8-20) mg/dl Urine Opiates Screen (Neg) Ur Methadone, Qual (Neg) Acetaminophen < 2 L (10-30) ug/ml Urine Barbiturates (Neg) Ur Phencyclidine (PCP) (Neg) U Amphetamin/Meth Scrn (Neg) MDMA (Ecstasy) Screen (Neg) U Benzodiazepines Scrn (Neg) Ur Cocaine Metabolite (Neg) U Marijuana (THC) Screen (Neg) Ethyl Alcohol mg/dL < 3.0 (0-3) mg/dl Blood Pressure Blood Pressure Findings: Elevated blood pressure Blood Pressure Disposition: Referred to patients primary care provider MDM Narrative This is a 23-year-old male who presents emergency department complaining of anxiety. The patient was medically cleared by me. He was independently evaluated by the psychiatric case liaison as well as 3 [facility]. he was admitted to [facility]. Patient was in agreement with the treatment plan. Impression & Plan Mood disorder Discharge Plan Visit Data *Final* Discharge Date/Time: 01/21/19 13:10 Chief Complaint: Mental Health Evaluation Stated Complaint: MENTAL HEALTH EVALUATION ED Provider: Mic Weaver Discharge Problem: Mood disorder Patient Disposition: Admitted As Inpatient Discharge Instructions Interventions: ED Discharge Assessment Last Done: 01/21/19 13:10 The shola's documentation has been prepared under my direction and personally reviewed by me in its entirety. I confirm that the note above accurately reflects all work, treatment, procedures, and medical decision making performed by me.
[2019-01-21] MEDS ORDERED: BISMUTH SUBSALICYLATE PER ML OMNICELL CHARGE PO PRN (12:22)
[2019-01-21] MEDS ORDERED: ACETAMINOPHEN 325 MG TAB PO PRN (12:22)
[2019-01-21] MEDS ORDERED: SODIUM CHLORIDE 0.65% NA SOLN 45 ML (OCEAN) PRN (12:22)
[2019-01-21] MEDS ORDERED: ALUMINUM/MAGNESIUM SUSP 30 ML UDC PO PRN (12:22)
[2019-01-21] MEDS ORDERED: MAGNESIUM HYDROXIDE SUSP 30 ML UDC PO PRN (12:22)
--- NOTE | 2019-01-21 13:36 | Allied Health Admission Assmnt ---
Date of Service January 21, 2019 Impression / Recommendations Impression 23-year-old male admitted voluntarily for inpatient psychiatric treatment. Pt verbalizing depressed mood worsening over the past 5 months. 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 Pt admits to SI for the past 3 months, worsening to the point of considering shooting himself or cutting his wrist. Pt does have history of overdose of melatonin at age 14y/o - no outpatient psychiatric treatment since. Will treat for depression NOS, with differential including major depressive disorder, dysthymic disorder, adjustment disorder, as well as other considerations. Pt is declining initiation of antidepressant medications - but was cooperative with discussion of indications for future consideration. Pt will be encouraged to participate in group and recreational programming. We will suggest involvement of outpatient supports in a meeting to discuss discharge and safety planning. At this time, inpatient psychiatric treatment is medically necessary due to chronic SI with prior attempt, reported hopelessness, and inability to contract for safety outside of the inpatient setting. Dr. Tabby Smith was informed of findings of admission assessment and initiation of discussion regarding treatment plan. (1) Suicidal ideation: 01/21 - Admitted to a locked inpatient behavioral health unit, on q15 minute safety checks - Encourage medication initiation/adjustments as indicated - Encourage participation in group and recreational therapies - Gather collateral information from outpatient providers - Suggest family meeting to involve outpatient supports in safety planning - Arrange appropriate aftercare (2) Depression: 01/21 - Differential diagnoses include: major depressive disorder, dysthymic disorder, adjustment disorder, and other mood disorder. At this time, patient states he is not interested in initiating antidepressant medications - reporting a preference for therapeutic interventions initially. - Pt was cooperative with conversation regarding education on indication for antidepressant medications - Pt is agreeable to outpatient therapy after discharge - Gather collateral information from outpatient supports - Involve outpatient supports in a family meeting - Complete safety and discharge planning Depression Type: unspecified Qualified Code(s): F32.9 - Major depressive disorder, single episode, unspecified (3) Anxiety: 01/21 - Therapeutic interventions; as patient is declining initiation of psychiatric medications - Encourage attendance of group and recreational programming - Assist in development of healthy and effective coping strategies - Hydroxyzine 25mg q4h prn as standing admission order for acute anxiety Inventory Assets Strengths: willingness for treatment, family support, stable employment Needs: therapeutic interventions, involvement of outpatient supports, safety planning Risk Factors Assessment Male: Yes : No Do You Have Access To A Gun?: No Health Problems: No Mental Health Diagnoses: No Substance Use Disorders: No Previous Attempt: Yes Previous Psychiatric Hospitalization: Yes Hopelessness: Yes Smoker: No Protective Factors Assessment Tenriism Beliefs: No : No Responsible for Young Children: No 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 Pt has a remote history of situational depression at the age of 14y/o which led to a suicide attempt by overdose. Pt was admitted on 01/21/19 13:17 on a 201 voluntary commitment for worsening depression with reported suicidality, consideration to shoot himself or overdose. Information is gathered from ED documentation and the patient himself - the combination of which is considered to be reliable. Chief Complaint "So, for the past 5 months been very stressed and very depressed. It has been a steady decline of me not caring about anything. I don't care if I live. I don't care if I eat. I just don't care." History of Present Illness Roxann Coyle is a 23-year-old male admitted voluntarily for inpatient psychiatric treatment on 01/21/2019. Patient admits to worsening mood and increased anxiety over the past several months. Reportedly, patient reached out to a friend about worsening suicidal ideation. Friend called the crisis line, who sent police to check on the patient. Patient was able to contract for safety, but was encouraged to present to the ED if he felt necessary. It is reported that a telephone sales representative from [employer] us to check on the patient and asked morning. Before the visit could occur, patient requested that his father bring him to the emergency room for mental health treatment. Patient had verbalized situational stressors of an aunt recently experiencing a stroke and not particularly enjoying his line of work. 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 Patient was assessed in the emergency room, where he verbalize suicidality and was unable to contract for safety. He was admitted voluntarily to our unit for inpatient psychiatric treatment. Patient shares with this provider that he has been noticing worsening depression and increased anxiety for the past 5 months. 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 Patient states that these and other stressors have continued to build over the last several months. He admits that his mood began to significantly worsen in the past 3 months, and was ass ociated with suicidal ideation. Patient states that he had considerations to shoot himself or to cut his wrist. Although patient does not have immediate access to a gun, he does admit that he put consideration into "where I would do it." Patient verbalizes that the main reasons that he did not act on these thoughts was limited motivation to complete tasks in the past several months in combination with "I would think about how I would feel if one of my friends in that. I am sure I would look back and wish that they hadn't." Patient does admit to a previous suicide attempt at the age of 14, in which she overdosed on a bottle of melatonin. Patient states "I had the intention of wanting to , but I was young. I had no concept of certain medications being more potent than others." Patient states he was hospitalized at [facility] after the suicide attempt, but did not continue with any outpatient psychiatric treatment. He states medications were not initiated at that time. Patient believes that a lot of his changes in mood are related to situational stressors. At the age of 14, the patient states that he had just transitioned back to [place] from a [employer], and had difficulty coping with the adjustment. Patient denies any significant concerns related to his mood or anxiety in the interim. Patient states that he has been open with some friends about the changes in his mood but states "I had one friend tell me that it was a chemical imbalance in my brain and I needed medications. I was kind of offended after that. I think they are pretty clear reasons why I am feeling the way that I am, and I need to put in the time to get better." The patient verbalizes his main stressors at this time are his job, which she does not particularly enjoy. He states that he is expected to work nearly every day due to understaffing. He reports, "I spent all week thinking about what I want to do on my day off, then my day off comes and I do not do anything." Patient verbalizes depressive symptoms of low mood, anhedonia, decreased appetite, limited motivation, difficulty concentrating, constant feelings of hopelessness, guilt, and suicidal ideation. Patient states that he has a "general negative vibe" about life. Patient also endorses symptoms of anxiety, including racing thoughts, "even thoughts that do not matter", and feeling as though he may "lose control." Patient endorses symptoms consistent with unprovoked panic attacks, which she states occur 3-4 times a week. Patient describes these panic attacks as "a light switch" generally lasting 20 minutes. He endorses symptoms of racing thoughts, tremor, shortness of breath, and tachycardia. Patient states that he believes his issues with low mood and anxiety began "back in eighth grade", but admits they are likely actually situational. For example, patient states he was greatly affected by the of his uncle in 10th grade due to an unexpected myocardial infarction. He also describes 10th grade as "the best I felt", as he believed his friends were really connected and he was spending good quality time with them. Pt denies HI, SIB, A/V hallucinations, paranoia, ruthy/hypomania, other symptoms more suggestive of a bipolar presentation, OCD, PTSD, eating disorder, and other specific psychiatric symptoms. Past Psychiatric History Current Psychiatric Diagnosis: None Outpatient Services: None presently; sees PCP for any medical concerns Previous Psych Admissions: [facility] - age 14y/o, s/p intentional OD of melatonin. States the depressed mood leading to this attempt was related to transitioning back to public school in 8th grade. Do You Have Access To A Gun?: No History of Previous Suicide Attempt: Yes Describe Attempts in the Past: overdose at age 14 Past Medication Trials: Denies Past Head Trauma/Neuro History History of Concussion/Seizure: No Allergies Allergy/AdvReac Type Severity Reaction Status Date / Time No Known Allergies Allergy Verified 01/21/19 11:19 Home Medications Home Medications Medication Instructions Recorded Confirmed Type No Known Home Medications 01/21/19 01/21/19 History Family History Family History of: Anxiety Family Mental Health History Comment: older brother anxiety Alcohol History Hx of Alcohol Use Over the Past 12 Months: Yes (Socially 1-2 times per week) Patient admits to consuming alcohol 1-2 days/week. On nights he partakes, patient states he may drink about 2 beers. Patient denies regularly drinking to the point of getting drunk or blacking out. He does not currently view his alcohol use as a concern. Smoking Use Smoking Status: Never smoker Substance History Hx of Prescription Med Misuse Over the Past 12 Months: No Hx of Over the Counter Med Misuse Over the Past 12 Months: No Hx of Inhalent Misuse Over the Past 12 Months: No Hx of Organic Substance Use Over the Past 12 Months: No Hx of Illegal Substances/Street Drug Use Over Past 12 Months: No Patient denies use of marijuana or other illicit substances. Denies significant history of experimentation with substances in the past. He does admit to consuming 2-3 cans of Mountain Dew daily. Personal History Living Arrangements: Home (With father and 2 younger sisters) Childhood: Patient states he was born and raised in [place]. According to the patient, his mother and father and gotten back together multiple times during his childhood. He has 2 younger sisters, with whom he lives, and an older brother who lives independently. 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 Patient also admits his parents divorce has been difficult as well. 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 Physical Exam Psychiatric Orientation: alert, oriented x 3 and cooperative (And pleasant) Apperance: appropriately dressed, appropriately groomed and appeared stated age Obese appearing male, seated in no acute distress. Patient is appropriately dressed for the setting in a T-shirt and jeans. Hair is a bit longer, but appears clean and decently groomed. Level of hygiene and grooming appear adequate. Eye Contact: good eye contact Motor Behavior: steady gait and station and no abnormal motor movements Speech: normal rate/rhythm/volume of speech (Somewhat monotone) Affect: + depressed affect and mood congruent with affect Mood: + depressed mood ("I just do not care" and "very stressed and very depressed") and + anxious mood Thought Process: goal directed thought process, clear/coherent thought process and thought association intact Thought Content: reality based without delusions, + hopelessness, + worthlessness and + guilt Suicidal Thoughts: + reports suicidal thoughts, + reports suicidal plan (verbalizing consideration to either shoot himself or cut his wrist) and + reports suicidal intent (reporting his decreased motivation has prevented action on thoughts) Homicidal Thoughts: denies homicidal thoughts Hallucinations: no auditory hallucinations and no visual hallucinations Cognition: remote memory grossly intact, attention grossly intact and language grossly intact Insight: + fair insight Judgement: + fair judgement Vital Signs (Past 24 Hours) Last Vital Signs Temp 36.7 C 01/21/19 10:03 Pulse 88 01/21/19 13:10 Resp 18 01/21/19 13:10 BP 159/86 H 01/21/19 13:10 Pulse Ox 99 01/21/19 13:10 Results & Data Laboratory Results Laboratory Results - last 24 hr 01/21/19 01/21/19 01/21/19 10:24 10:24 10:32 WBC 5.80 RBC 4.41 L Hgb 14.9 Hct 42.6 MCV 96.6 MCH 33.8 MCHC 35.0 RDW Std Deviation 44.3 RDW Coeff of Jarrett 12.5 Plt Count 127 L MPV 11.2 H Immature Gran % (Auto) 0.2 Neut % (Auto) 71.1 Lymph % (Auto) 17.8 Piatt % (Auto) 10.2 Eos % (Auto) 0.5 Baso % (Auto) 0.2 Immature Gran # (Auto) 0.01 Neut # (Auto) 4.13 Lymph # (Auto) 1.03 L Piatt # (Auto) 0.59 Eos # (Auto) 0.03 Baso # (Auto) 0.01 Sodium Potassium Chloride Carbon Dioxide Anion Gap BUN Creatinine Est Cr Clr Drug Dosing Est GFR ( Amer) Est GFR (Non-Af Amer) BUN/Creatinine Ratio Glucose Calcium Total Bilirubin AST ALT Alkaline Phosphatase Total Protein Albumin Globulin Albumin/Globulin Ratio TSH Urine Color Yellow Urine Appearance Clear Urine pH 6.5 Ur Specific [place] 1.015 Urine Protein Negative Urine Glucose (UA) Negative Urine Ketones Negative Urine Blood Trace H Urine Nitrite Negative Urine Bilirubin Negative Urine Urobilinogen Negative Ur Leukocyte Esterase Negative Urine WBC (Auto) 1-5 Urine RBC (Auto) 0-4 U Hyaline Cast (Auto) 1-5 U Epithel Cells (Auto) 10-20 H Urine Bacteria (Auto) Negative Salicylates Urine Opiates Screen Neg Ur Methadone, Qual Neg Acetaminophen Urine Barbiturates Neg Ur Phencyclidine (PCP) Neg U Amphetamin/Meth Scrn Neg MDMA (Ecstasy) Screen Neg U Benzodiazepines Scrn Neg Ur Cocaine Metabolite Neg U Marijuana (THC) Screen Neg Ethyl Alcohol mg/dL 01/21/19 01/21/19 01/21/19 10:32 10:32 10:32 WBC RBC Hgb Hct MCV MCH MCHC RDW Std Deviation RDW Coeff of Jarrett Plt Count MPV Immature Gran % (Auto) Neut % (Auto) Lymph % (Auto) Piatt % (Auto) Eos % (Auto) Baso % (Auto) Immature Gran # (Auto) Neut # (Auto) Lymph # (Auto) Piatt # (Auto) Eos # (Auto) Baso # (Auto) Sodium 141 Potassium 3.4 L Chloride 108 H Carbon Dioxide 28 Anion Gap 5.0 BUN 7 Creatinine 0.87 Est Cr Clr Drug Dosing 166.7 Est GFR ( Amer) 142.0 Est GFR (Non-Af Amer) 122.5 BUN/Creatinine Ratio 7.7 L Glucose 88 Calcium 8.8 Total Bilirubin 1.2 H AST 14 L ALT 15 Alkaline Phosphatase 57 Total Protein 7.0 Albumin 3.9 Globulin 3.1 Albumin/Globulin Ratio 1.3 TSH 0.600 Urine Color Urine Appearance Urine pH Ur Specific [place] Urine Protein Urine Glucose (UA) Urine Ketones Urine Blood Urine Nitrite Urine Bilirubin Urine Urobilinogen Ur Leukocyte Esterase Urine WBC (Auto) Urine RBC (Auto) U Hyaline Cast (Auto) U Epithel Cells (Auto) Urine Bacteria (Auto) Salicylates < 1.7 L Urine Opiates Screen Ur Methadone, Qual Acetaminophen < 2 L Urine Barbiturates Ur Phencyclidine (PCP) U Amphetamin/Meth Scrn MDMA (Ecstasy) Screen U Benzodiazepines Scrn Ur Cocaine Metabolite U Marijuana (THC) Screen Ethyl Alcohol mg/dL < 3.0 Current Inpatient Medications Current Inpatient Medications: Current Inpatient Medications Acetaminophen (Tylenol) 650 mg PO Q4H PRN PRN Reason: Headache or Minor Fever Stop: 02/20/19 12:21 Al Hydrox/Mg Hydrox/Simethicone (Maalox) 30 ml PO Q4H PRN PRN Reason: GI Upset Stop: 02/20/19 12:21 Bismuth Subsalicylate (Kaopectate) 15 ml PO PRN PRN PRN Reason: Loose Stool Stop: 02/20/19 12:21 Hydroxyzine HCl (Vistaril) 50 mg PO HSZ PRN PRN Reason: Insomnia Stop: 02/20/19 12:21 Hydroxyzine HCl (Vistaril) 25 mg PO Q4H PRN PRN Reason: Anxiety Stop: 02/20/19 12:21 Magnesium Hydroxide (Milk Of Magnesia) 30 ml PO DAILY PRN PRN Reason: Constipation Stop: 02/20/19 12:21 Sodium Chloride (Walsh Nasal) 1 - 2 sprays NA PRN PRN PRN Reason: Nasal Dryness/Congestion Stop: 02/20/19 12:21 CPT Code CPT Code Allied Health Assessment - Completed to begin treatment planning prior to psychiatric H&P No billing for visit
--- NOTE | 2019-01-22 08:43 | History & Physical ---
Date of Service January 22, 2019 Impression / Recommendations Impression 23-year-old male with a history of suicide attempt by overdose at age 14 who is admitted voluntarily for depression that has been worsening over the past 5 months, with suicidal ideation and thoughts to shoot himself or cut his wrists. Worsening mood and anxiety correlated with job stress and aunt's medical problems. He meets criteria for major depression, but would like to try to address his symptoms without the use of antidepressant medication, although he is open to education about medication and reconsideration if symptoms are not improving. He is attending groups and finding them helpful, and is willing to have a meeting with his father, whom he lives with, and referral for outpatient therapy. Inpatient psychiatric treatment is medically necessary due to the severity of his symptoms and risk for suicide if discharged. (1) Suicidal ideation: 01/21 - Admitted to a locked inpatient behavioral health unit, on q15 minute safety checks - Encourage medication initiation/adjustments as indicated - Encourage participation in group and recreational therapies - Gather collateral information from outpatient providers - Suggest family meeting to involve outpatient supports in safety planning - Arrange appropriate aftercare 01/22 - Continues to have suicidal thoughts, but lessened from admission. (2) Depression: 01/21 - Differential diagnoses include: major depressive disorder, dysthymic disorder, adjustment disorder, and other mood disorder. At this time, patient states he is not interested in initiating antidepressant medications - reporting a preference for therapeutic interventions initially. - Pt was cooperative with conversation regarding education on indication for antidepressant medications - Pt is agreeable to outpatient therapy after discharge - Gather collateral information from outpatient supports - Involve outpatient supports in a family meeting - Complete safety and discharge planning 01/22 -Meets criteria for major depression. Discussed treatment options, including role of medication, therapy, stress management techniques, importance of utilizing his supports, and making time for relaxation activities he enjoys. Discussed what the antidepressant medication can do, the risks and benefits, and he agreed to consider medication if symptoms are not improving. In the meantime, continue to involve him in groups and therapy, refer for outpatient therapy, and schedule a family meeting with his father. Depression Type: unspecified Qualified Code(s): F32.9 - Major depressive disorder, single episode, unspecified (3) Anxiety: 01/21 - Therapeutic interventions; as patient is declining initiation of psychiatric medications - Encourage attendance of group and recreational programming - Assist in development of healthy and effective coping strategies - Hydroxyzine 25mg q4h prn as standing admission order for acute anxiety Inventory Assets Strengths: willingness for treatment, family support, stable employment Needs: therapeutic interventions, involvement of outpatient supports, safety planning Risk Factors Assessment Male: Yes : No Do You Have Access To A Gun?: No Health Problems: No Mental Health Diagnoses: No Substance Use Disorders: No Previous Attempt: Yes Previous Psychiatric Hospitalization: Yes Hopelessness: Yes Smoker: No Protective Factors Assessment Sikh Beliefs: No : No Responsible for Young Children: No 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 Chief Complaint "Okay". History of Present Illness Information gathered by Sissy CARDENAS: Roxann Coyle is a 23-year-old male admitted voluntarily for inpatient psychiatric treatment on 01/21/2019. Patient admits to worsening mood and increased anxiety over the past several months. Reportedly, patient reached out to a friend about worsening suicidal ideation. Friend called the crisis line, who sent police to check on the patient. Patient was able to contract for safety, but was encouraged to present to the ED if he felt necessary. It is reported that a field support representative from [employer] [facility] to check on the patient and asked morning. Before the visit could occur, patient requested that his father bring him to the emergency room for mental health treatment. Patient had verbalized situational stressors of an aunt recently experiencing a stroke and not particularly enjoying his line of work. 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 Patient was assessed in the emergency room, where he verbalize suicidality and was unable to contract for safety. He was admitted voluntarily to our unit for inpatient psychiatric treatment. Patient shares with this provider that he has been noticing worsening depression and increased anxiety for the past 5 months. 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 Patient states that these and other stressors have continued to build over the last several months. He admits that his mood began to significantly worsen in the past 3 months, and was associated with suicidal ideation. Patient states that he had considerations to shoot himself or to cut his wrist. Although patient does not have immediate acc ess to a gun, he does admit that he put consideration into "where I would do it." Patient verbalizes that the main reasons that he did not act on these thoughts was limited motivation to complete tasks in the past several months in combination with "I would think about how I would feel if one of my friends in that. I am sure I would look back and wish that they hadn't." Patient does admit to a previous suicide attempt at the age of 14, in which she overdosed on a bottle of melatonin. Patient states "I had the intention of wanting to , but I was young. I had no concept of certain medications being more potent than others." Patient states he was hospitalized at [facility] after the suicide attempt, but did not continue with any outpatient psychiatric treatment. He states medications were not initiated at that time. Patient believes that a lot of his changes in mood are related to situational stressors. At the age of 14, the patient states that he had just transitioned back to [place] from a [employer], and had difficulty coping with the adjustment. Patient denies any significant concerns related to his mood or anxiety in the interim. Patient states that he has been open with some friends about the changes in his mood but states "I had one friend tell me that it was a chemical imbalance in my brain and I needed medications. I was kind of offended after that. I think they are pretty clear reasons why I am feeling the way that I am, and I need to put in the time to get better." The patient verbalizes his main stressors at this time are his job, which she does not particularly enjoy. He states that he is expected to work nearly every day due to understaffing. He reports, "I spent all week thinking about what I want to do on my day off, then my day off comes and I do not do anything." Patient verbalizes depressive symptoms of low mood, anhedonia, decreased appetite, limited motivation, difficulty concentrating, constant feelings of hopelessness, guilt, and suicidal ideation. Patient states that he has a "general negative vibe" about life. Patient also endorses symptoms of anxiety, including racing thoughts, "even thoughts that do not matter", and feeling as though he may "lose control." Patient endorses symptoms consistent with unprovoked panic attacks, which she states occur 3-4 times a week. Patient describes these panic attacks as "a light switch" generally lasting 20 minutes. He endorses symptoms of racing thoughts, tremor, shortness of breath, and tachycardia. Patient states that he believes his issues with low mood and an xiety began "back in eighth grade", but admits they are likely actually situational. For example, patient states he was greatly affected by the of his uncle in 10th grade due to an unexpected myocardial infarction. He also describes 10th grade as "the best I felt", as he believed his friends were really connected and he was spending good quality time with them. Pt denies HI, SIB, A/V hallucinations, paranoia, ruthy/hypomania, other symptoms more suggestive of a bipolar presentation, OCD, PTSD, eating disorder, and other specific psychiatric symptoms. On my assessment, he states mood remains low, although he feels safe here. He is interested in therapy and less in medications, stating he is offended by the idea that depression is "just a chemical imbalance in my brain, my problems are real, it's not my fault."Discussed antidepressants in depth including risks, benefits, and what to expect from them. He is hoping to work on coping strategies and says groups have been helpful here. He reports good support from friends and family members. He continues to have suicidal thoughts, but they are "not as detailed and not as often" as they were prior to admission. He is anxious at times, especially in the morning, denies specific trigger. At times feels hopeless, for example thinking he doesn't need to be here, there is no point and it won't help. He is also thinking about his job and feeling that it is not going to work out for him as it is too stressful due to the fast pace, high stress environment, and working daily (although not full days). 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 He slept well last night, notes he went to bed at 10pm which is "the earliest I've gone to bed in a long time." Appetite has improved. He lives with his father and two younger sisters in [place], and states they're "all on such different schedules, never see each other." He feels his father "doesn't really pay attention" and did not know that he was struggling until the night before he came to the hospital. Although his father visited, they did not discuss it, "just a brief chat."He does think it would be helpful to involve his father in treatment. States they don't do much as a family, and he typically spends his time at home playing video games. He describes his relationship with one sister as "fine," but thinks his other sister "hates me, thinks I get everything and she gets nothing." Past Psychiatric History Current Psychiatric Diagnosis: Depression NOS Outpatient Services: None, and denies any history of outpatient treatment. Previous Psych Admissions: [facility] - age 14y/o, s/p intentional OD of melatonin. States the depressed mood leading to this attempt was related to transitioning back to public school in 8th grade. Do You Have Access To A Gun?: No History of Previous Suicide Attempt: Yes Describe Attempts in the Past: overdose at age 14 Past Medication Trials: None Allergies Allergy/AdvReac Type Severity Reaction Status Date / Time No Known Allergies Allergy Verified 01/21/19 11:19 Home Medications Home Medications Medication Instructions Recorded Confirmed Type No Known Home Medications 01/21/19 01/21/19 History Family History Family History of: Anxiety (brother) Alcohol History Hx of Alcohol Use Over the Past 12 Months: Yes (Socially 1-2 times per week) AUDIT Total Score: 4 Smoking Use Have You Smoked or Used Tobacco Products in the Last 30 Days: No Smoking Status: Never smoker Substance History Hx of Prescription Med Misuse Over the Past 12 Months: No Hx of Over the Counter Med Misuse Over the Past 12 Months: No Hx of Inhalent Misuse Over the Past 12 Months: No Hx of Organic Substance Use Over the Past 12 Months: No Hx of Illegal Substances/Street Drug Use Over Past 12 Months: No Problems as a Result of Past Substance Use: None Identified Caffeine: 2-3 cans of Mountain Dew daily Personal History Living Arrangements: Home (With father and 2 younger sisters) Living Arrangements Comments: with father and two sisters in [place]. Mother also lives in [place], but their relationship is strained. Childhood: Grew up in [place]. Father and mother and got back together multiple times during his childhood, and ultimately . Has 6 siblings, not particularly close to any family members. Uncle when he was in which led to his aunt's alcohol abuse. 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 Patient History Medical History Depression Family History Mother Hypertension Brother Hypertension Aunt Stroke Uncle Myocardial infarction Social History Preferred Language: Syrian Communication Ability: Effective First Aid Attendant Required: No Beliefs That Will Affect Care: None Feels Safe at Home: Yes Smoking Status: Never smoker Review of Systems Review of Systems: All systems reviewed & are unremarkable except as noted in HPI & below Physical Exam Vital Signs (Past 24 Hours): Last Vital Signs Temp 36.6 C 01/22/19 07:21 Pulse 87 01/22/19 07:23 Resp 16 01/22/19 07:21 BP 127/89 01/22/19 07:23 Pulse Ox 98 01/21/19 14:11 Exam Statement: A physical exam was performed in the ER prior to admission to the unit by Dr. Mic Weaver. I accept that physical as correct/medical clearance for the inpatient physical exam. Results & Data Laboratory Results Laboratory Results - last 24 hr 01/21/19 01/21/19 01/21/19 10:24 10:24 10:32 WBC 5.80 RBC 4.41 L Hgb 14.9 Hct 42.6 MCV 96.6 MCH 33.8 MCHC 35.0 RDW Std Deviation 44.3 RDW Coeff of Jarrett 12.5 Plt Count 127 L MPV 11.2 H Immature Gran % (Auto) 0.2 Neut % (Auto) 71.1 Lymph % (Auto) 17.8 [place] % (Auto) 10.2 Eos % (Auto) 0.5 Baso % (Auto) 0.2 Immature Gran # (Auto) 0.01 Neut # (Auto) 4.13 Lymph # (Auto) 1.03 L [place] # (Auto) 0.59 Eos # (Auto) 0.03 Baso # (Auto) 0.01 Sodium Potassium Chloride Carbon Dioxide Anion Gap BUN Creatinine Est Cr Clr Drug Dosing Est GFR ( Amer) Est GFR (Non-Af Amer) BUN/Creatinine Ratio Glucose Calcium Total Bilirubin AST ALT Alkaline Phosphatase Total Protein Albumin Globulin Albumin/Globulin Ratio TSH Urine Color Yellow Urine Appearance Clear Urine pH 6.5 Ur Specific [place] 1.015 Urine Protein Negative Urine Glucose (UA) Negative Urine Ketones Negative Urine Blood Trace H Urine Nitrite Negative Urine Bilirubin Negative Urine Urobilinogen Negative Ur Leukocyte Esterase Negative Urine WBC (Auto) 1-5 Urine RBC (Auto) 0-4 U Hyaline Cast (Auto) 1-5 U Epithel Cells (Auto) 10-20 H Urine Bacteria (Auto) Negative Salicylates Urine Opiates Screen Neg Ur Methadone, Qual Neg Acetaminophen Urine Barbiturates Neg Ur Phencyclidine (PCP) Neg U Amphetamin/Meth Scrn Neg MDMA (Ecstasy) Screen Neg U Benzodiazepines Scrn Neg Ur Cocaine Metabolite Neg U Marijuana (THC) Screen Neg Ethyl Alcohol mg/dL 01/21/19 01/21/19 01/21/19 10:32 10:32 10:32 WBC RBC Hgb Hct MCV MCH MCHC RDW Std Deviation RDW Coeff of [place] Plt Count MPV Immature Gran % (Auto) Neut % (Auto) Lymph % (Auto) [place] % (Auto) Eos % (Auto) Baso % (Auto) Immature Gran # (Auto) Neut # (Auto) Lymph # (Auto) [place] # (Auto) Eos # (Auto) Baso # (Auto) Sodium 141 Potassium 3.4 L Chloride 108 H Carbon Dioxide 28 Anion Gap 5.0 BUN 7 Creatinine 0.87 Est Cr Clr Drug Dosing 166.7 Est GFR ( Amer) 142.0 Est GFR (Non-Af Amer) 122.5 BUN/Creatinine Ratio 7.7 L Glucose 88 Calcium 8.8 Total Bilirubin 1.2 H AST 14 L ALT 15 Alkaline Phosphatase 57 Total Protein 7.0 Albumin 3.9 Globulin 3.1 Albumin/Globulin Ratio 1.3 TSH 0.600 Urine Color Urine Appearance Urine pH Ur Specific [place] Urine Protein Urine Glucose (UA) Urine Ketones Urine Blood Urine Nitrite Urine Bilirubin Urine Urobilinogen Ur Leukocyte Esterase Urine WBC (Auto) Urine RBC (Auto) U Hyaline Cast (Auto) U Epithel Cells (Auto) Urine Bacteria (Auto) Salicylates < 1.7 L Urine Opiates Screen Ur Methadone, Qual Acetaminophen < 2 L Urine Barbiturates Ur Phencyclidine (PCP) U Amphetamin/Meth Scrn MDMA (Ecstasy) Screen U Benzodiazepines Scrn Ur Cocaine Metabolite U Marijuana (THC) Screen Ethyl Alcohol mg/dL < 3.0 Current Inpatient Medications Current Inpatient Medications: Current Inpatient Medications Acetaminophen (Tylenol) 650 mg PO Q4H PRN PRN Reason: Headache or Minor Fever Stop: 02/20/19 12:21 Al Hydrox/Mg Hydrox/Simethicone (Maalox) 30 ml PO Q4H PRN PRN Reason: GI Upset Stop: 02/20/19 12:21 Bismuth Subsalicylate (Kaopectate) 15 ml PO PRN PRN PRN Reason: Loose Stool Stop: 02/20/19 12:21 Hydroxyzine HCl (Vistaril) 50 mg PO HSZ PRN PRN Reason: Insomnia Stop: 02/20/19 12:21 Hydroxyzine HCl (Vistaril) 25 mg PO Q4H PRN PRN Reason: Anxiety Stop: 02/20/19 12:21 Magnesium Hydroxide (Milk Of Magnesia) 30 ml PO DAILY PRN PRN Reason: Constipation Stop: 02/20/19 12:21 Sodium Chloride ([place] Nasal) 1 - 2 sprays NA PRN PRN PRN Reason: Nasal Dryness/Congestion Stop: 02/20/19 12:21
--- NOTE | 2019-01-23 12:44 | Psychiatric Progress Note ---
Date of Service January 23, 2019 Impression / Recommendations Impression 23-year-old male with a history of suicide attempt by overdose at age 14 who is admitted voluntarily for depression that has been worsening over the past 5 months, with suicidal ideation and thoughts to shoot himself or cut his wrists. Worsening mood and anxiety correlated with job stress and aunt's medical problems. He meets criteria for major depression, but would like to try to address his symptoms without the use of antidepressant medication, although he is open to education about medication and reconsideration if symptoms are not improving. He is attending groups and finding them helpful, and is willing to have a meeting with his father, whom he lives with, and referral for outpatient therapy. Inpatient psychiatric treatment is medically necessary due to the severity of his symptoms and risk for suicide if discharged. (1) Suicidal ideation: 01/21 - Admitted to a locked inpatient behavioral health unit, on q15 minute safety checks - Encourage medication initiation/adjustments as indicated - Encourage participation in group and recreational therapies - Gather collateral information from outpatient providers - Suggest family meeting to involve outpatient supports in safety planning - Arrange appropriate aftercare 01/22 - Continues to have suicidal thoughts, but lessened from admission. 01/23 - Pt reports thoughts of "I want to be ", but denies plan of "detailed thoughts" (2) Depression: 01/21 - Differential diagnoses include: major depressive disorder, dysthymic disorder, adjustment disorder, and other mood disorder. At this time, patient states he is not interested in initiating antidepressant medications - reporting a preference for therapeutic interventions initially. - Pt was cooperative with conversation regarding education on indication for antidepressant medications - Pt is agreeable to outpatient therapy after discharge - Gather collateral information from outpatient supports - Involve outpatient supports in a family meeting - Complete safety and discharge planning 01/22 -Meets criteria for major depression. Discussed treatment options, including role of medication, therapy, stress management techniques, importance of utilizing his supports, and making time for relaxation activities he enjoys. Discussed what the antidepressant medication can do, the risks and benefits, and he agreed to consider medication if symptoms are not improving. In the meantime, continue to involve him in groups and therapy, refer for outpatient therapy, and schedule a family meeting with his father. 01/23 - Continue to encourage engagement in group and recreational programming - Pt continues to verbalize desire to reserve psychiatric medication initiation for inability to address symptoms with therapy alone - Family meeting with mother and father scheduled for donnaorrow afternoon (3) Anxiety: 01/21 - Therapeutic interventions; as patient is declining initiation of psychiatric medications - Encourage attendance of group and recreational programming - Assist in development of healthy and effective coping strategies - Hydroxyzine 25mg q4h prn as standing admission order for acute anxiety Inventory Assets Strengths: willingness for treatment, family support, stable employment Needs: therapeutic interventions, involvement of outpatient supports, safety planning Risk Factors Assessment Male: Yes : No Do You Have Access To A Gun?: No Health Problems: No Mental Health Diagnoses: No Substance Use Disorders: No Previous Attempt: Yes Previous Psychiatric Hospitalization: Yes Hopelessness: Yes Smoker: No Protective Factors Assessment Tenriism Beliefs: No : No Responsible for Young Children: No 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 Chief Complaint "Yeah, yesterday was pretty good." Review of Systems Notes Constitutional: denied Cardiovascular: denied Respiratory: denied Gastrointestinal: denied Neurological: denied Psychiatric: denies symptoms other than stated above Total of at least 10 systems reviewed, pertinent positives as above and in HPI. Sleep Information Total Hours of Sleep: 5 Sleep Comments: slept in 328 due to roommate snoring Meal Information Percent Meal Consumed - Breakfast: 100 Percent Meal Consumed - Lunch: 100 Percent Meal Consumed - Dinner: 90 Subjective Subjective Patient was seen & assessed and interval progress reviewed with nursing and social work. Staff report the patient appeared rather anxious yesterday. He had a positive visit with his father and a friend last evening. He rated his mood a 7/10 last evening - sleeping 5 hours in the quiet room due to roommate's snoring. Pt was seen today to assess progress since admission. He states that yesterday was "pretty good", stating he particularly enjoyed a conversation about cognitive distortions. Pt states this topic resonated with him due to his believe that he has "pretty negative thoughts." He states, "I learned that things we don't know aren't necessarily negative." Pt states that he has continued to focus on ways to improve his self-esteem. Pt admits to ongoing SI, but states it is "not as detailed as before." He reports he continues to have thoughts of "I want to be ", but denies intent or plan to act on the thoughts. He states they would usually stay with him for the duration of the day, but today they resolved rather quickly. Pt denies other needs or concerns at this time. Physical Exam Psychiatric Orientation: alert, oriented x 3 and cooperative (and pleasant) Apperance: appropriately dressed, appropriately groomed and appeared stated age Eye Contact: good eye contact Motor Behavior: steady gait and station and no abnormal motor movements Speech: normal rate/rhythm/volume of speech Affect: + depressed affect (mildly brighter today) and mood congruent with affect Mood: + depressed mood Thought Process: goal directed thought process, clear/coherent thought process and thought association intact Thought Content: reality based without delusions; no hopelessness Suicidal Thoughts: + reports suicidal thoughts (reports thoughts of "I want to be ", but denies intent or plan) Homicidal Thoughts: denies homicidal thoughts Hallucinations: no auditory hallucinations and no visual hallucinations Cognition: attention grossly intact and language grossly intact Insight: + fair insight Judgement: + fair judgement Vital Signs (Past 24 Hours) Last Vital Signs Temp 36.7 C 01/23/19 06:59 Pulse 103 H 01/23/19 07:01 Resp 16 01/23/19 06:59 BP 109/77 01/23/19 07:01 Pulse Ox 98 01/21/19 14:11 Results & Data Current Inpatient Medications Current Inpatient Medications: Current Inpatient Medications Acetaminophen (Tylenol) 650 mg PO Q4H PRN PRN Reason: Headache or Minor Fever Stop: 02/20/19 12:21 Al Hydrox/Mg Hydrox/Simethicone (Maalox) 30 ml PO Q4H PRN PRN Reason: GI Upset Stop: 02/20/19 12:21 Bismuth Subsalicylate (Kaopectate) 15 ml PO PRN PRN PRN Reason: Loose Stool Stop: 02/20/19 12:21 Hydroxyzine HCl (Vistaril) 50 mg PO HSZ PRN PRN Reason: Insomnia Stop: 02/20/19 12:21 Hydroxyzine HCl (Vistaril) 25 mg PO Q4H PRN PRN Reason: Anxiety Stop: 02/20/19 12:21 Magnesium Hydroxide (Milk Of Magnesia) 30 ml PO DAILY PRN PRN Reason: Constipation Stop: 02/20/19 12:21 Sodium Chloride ([place] Nasal) 1 - 2 sprays NA PRN PRN PRN Reason: Nasal Dryness/Congestion Stop: 02/20/19 12:21 Mental Health & Subst Abuse Tx Therapist Name of Therapist: None Family Resource Management Specialist Name of Family Resource Management Specialist: None Post Discharge Appointments Primary Care Physician Name Of Family Doctor: Dr. Rodriguez MNP (1) Depression Depression Type: unspecified Qualified Code(s): F32.9 - Major depressive disorder, single episode, unspecified
--- NOTE | 2019-01-24 16:09 | Psychiatric Progress Note ---
Date of Service January 24, 2019 Impression / Recommendations Impression 23-year-old male with a history of suicide attempt by overdose at age 14 who is admitted voluntarily for depression that has been worsening over the past 5 months, with suicidal ideation and thoughts to shoot himself or cut his wrists. Worsening mood and anxiety correlated with job stress and aunt's medical problems. He meets criteria for major depression, but would like to try to address his symptoms without the use of antidepressant medication, although he is open to education about medication and reconsideration if symptoms are not improving. He is attending groups and finding them helpful, and was willing to have a meeting with his father and mother, and referral for outpatient therapy. Inpatient psychiatric treatment is medically necessary due to the severity of his symptoms and risk for suicide if discharged. (1) Suicidal ideation: 01/21 - Admitted to a locked inpatient behavioral health unit, on q15 minute safety checks - Encourage medication initiation/adjustments as indicated - Encourage participation in group and recreational therapies - Gather collateral information from outpatient providers - Suggest family meeting to involve outpatient supports in safety planning - Arrange appropriate aftercare 01/22 - Continues to have suicidal thoughts, but lessened from admission. 01/23 - Pt reports thoughts of "I want to be ", but denies plan of "detailed thoughts" 01/24 - Pt reports thoughts again last evening of "I want to ", but states the are not lingering as long and are not as strong (2) Depression: 01/21 - Differential diagnoses include: major depressive disorder, dysthymic disorder, adjustment disorder, and other mood disorder. At this time, patient states he is not interested in initiating antidepressant medications - reporting a preference for therapeutic interventions initially. - Pt was cooperative with conversation regarding education on indication for antidepressant medications - Pt is agreeable to outpatient therapy after discharge - Gather collateral information from outpatient supports - Involve outpatient supports in a family meeting - Complete safety and discharge planning 01/22 -Meets criteria for major depression. Discussed treatment options, including role of medication, therapy, stress management techniques, importance of utilizi ng his supports, and making time for relaxation activities he enjoys. Discussed what the antidepressant medication can do, the risks and benefits, and he agreed to consider medication if symptoms are not improving. In the meantime, continue to involve him in groups and therapy, refer for outpatient therapy, and schedule a family meeting with his father. 01/23 - Continue to encourage engagement in group and recreational programming - Pt continues to verbalize desire to reserve psychiatric medication initiation for inability to address symptoms with therapy alone - Family meeting with mother and father scheduled for tomorrow afternoon 01/24 - Continue engagement in group programming - Continue to coordinate options for outpatient therapy (3) Anxiety: 01/21 - Therapeutic interventions; as patient is declining initiation of psychiatric medications - Encourage attendance of group and recreational programming - Assist in development of healthy and effective coping strategies - Hydroxyzine 25mg q4h prn as standing admission order for acute anxiety Inventory Assets Strengths: willingness for treatment, family support, stable employment Needs: therapeutic interventions, involvement of outpatient supports, safety planning Risk Factors Assessment Male: Yes : No Do You Have Access To A Gun?: No Health Problems: No Mental Health Diagnoses: No Substance Use Disorders: No Previous Attempt: Yes Previous Psychiatric Hospitalization: Yes Hopelessness: Yes Smoker: No Protective Factors Assessment Faith Beliefs: No : No Responsible for Young Children: No 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 Chief Complaint "Up and down today." Review of Systems Notes Constitutional: denied Cardiovascular: denied Respiratory: denied Gastrointestinal: denied Neurological: denied Psychiatric: denies symptoms other than stated above Total of at least 10 systems reviewed, pertinent positives as above and in HPI. Sleep Information Total Hours of Sleep: 6.25 Sleep Comments: slept in 328 due to roommate snoring Meal Information Percent Meal Consumed - Breakfast: 95 Percent Meal Consumed - Lunch: 95 Percent Meal Consumed - Dinner: 100 Subjective Subjective Patient was seen & assessed and interval progress reviewed with treatment team. Staff reports the patient demonstrated improved mood last evening, rating himself an 8/10. He has a meeting scheduled this afternoon with his parents. Patient was seen today to assess progress since admission. He states that today he is "up and down." He does verbalize that overall, he is having a better day than yesterday. Patient was asked about his perceived outcome of the family meeting, and states "in half an hour, all probably say it was good." Patient was asked to explain this comment, and admits that he is continuing to have difficulty "focusing on the positives." The patient states that he has been perseverating about the negative aspects of his family meeting, but is atte mpting to work through recalling the more positive things that may have occurred. Patient states "the more I think about it, the better I think I will be at pointing out the good things." Patient states that this concept was also difficult for him last evening, after a visit with a friend who was fired from his job recently. Patient states "I just got super negative about it, and just kept thinking about how hard he worked through high school and college and still got fired. But I did not focus on the positive things in his story like he was able to." Patient states that he did have passive suicidal ideation last evening, admitting to thoughts of "I want to ." Patient does state that this was "just a little bit, and I really mean a little bit." The patient admits that generally his thoughts are "half hopelessness and half I want to ", but thoughts last evening were "mostly hopeless and only a little bit of I want to ." Patient states that overall he feels that things are improving for him, and he is grateful for but he has learned during the group sessions. Patient denies suicidal ideation throughout the day today. He denies other needs or concerns at this time. Physical Exam Psychiatric Orientation: alert, oriented x 3 and cooperative (And pleasant) Apperance: appropriately dressed (Casually, in T-shirt and jeans), appropriately groomed and appeared stated age Eye Contact: good eye contact Motor Behavior: steady gait and station and no abnormal motor movements Speech: normal rate/rhythm/volume of speech Affect: + blunted affect and mood congruent with affect Mood: + depressed mood ("Up and down, but overall better") Thought Process: goal directed thought process, clear/coherent thought process and thought association intact Thought Content: reality based without delusions and + hopelessness (But reports gradual improvement) Suicidal Thoughts: denies suicidal thoughts (At time of encounter) Patient admits to passive suicidal ideation last evening, with thoughts of "I want to ." He states these have been occurring less frequently, and with less severity. Homicidal Thoughts: denies homicidal thoughts Hallucinations: no auditory hallucinations and no visual hallucinations Cognition: attention grossly intact and language grossly intact Estimated Intelligence: consistent with education level Insight: + fair insight Judgement: + fair judgement Vital Signs (Past 24 Hours) Last Vital Signs Temp 36.6 C 01/24/19 06:24 Pulse 70 01/24/19 06:24 Resp 18 01/24/19 06:24 BP 126/86 01/24/19 06:24 Pulse Ox 98 01/21/19 14:11 Results & Data Current Inpatient Medications Current Inpatient Medications: Current Inpatient Medications Acetaminophen (Tylenol) 650 mg PO Q4H PRN PRN Reason: Headache or Minor Fever Stop: 02/20/19 12:21 Al Hydrox/Mg Hydrox/Simethicone (Maalox) 30 ml PO Q4H PRN PRN Reason: GI Upset Stop: 02/20/19 12:21 Bismuth Subsalicylate (Kaopectate) 15 ml PO PRN PRN PRN Reason: Loose Stool Stop: 02/20/19 12:21 Hydroxyzine HCl (Vistaril) 50 mg PO HSZ PRN PRN Reason: Insomnia Stop: 02/20/19 12:21 Hydroxyzine HCl (Vistaril) 25 mg PO Q4H PRN PRN Reason: Anxiety Stop: 02/20/19 12:21 Magnesium Hydroxide (Milk Of Magnesia) 30 ml PO DAILY PRN PRN Reason: Constipation Stop: 02/20/19 12:21 Sodium Chloride ([place] Nasal) 1 - 2 sprays NA PRN PRN PRN Reason: Nasal Dryness/Congestion Stop: 02/20/19 12:21 Mental Health & Subst Abuse Tx Therapist Name of Therapist: [facility] Employee Assistance Program Therapist's Therapy Appointment Comment: [email or web address] Login: melinda Password [phone] Operations Research Group Manager Name of Operations Research Group Manager: [facility] Phone Number for Operations Research Group Manager: [phone] Time of Appointment with Operations Research Group Manager: Will follow up with you to schedule with the manager of case managementproperty disposal manager Appointment Comment: [address], [address], [place] [address] Post Discharge Appointments Primary Care Physician Name Of Family Doctor: [facility] - Dr. Rodriguez Primary Care Time of Appointment with PCP: Follow up as needed Provider Appointment Comment: [address] [place] [address] [place] [id number] Contact Information Discharge Discharge [address]: [address] [place] [address] N[place] [id number] (1) Depression Depression Type: unspecified Qualified Code(s): F32.9 - Major depressive disorder, single episode, unspecified
--- NOTE | 2019-01-25 10:10 | Discharge Summary ---
Date of Service January 25, 2019 History of Present Illness Information gathered by Sissy CARDENAS: Ronnie Matute is a 23-year-old male admitted voluntarily for inpatient psychiatric treatment on 01/21/2019. Patient admits to worsening mood and increased anxiety over the past several months. Re portedly, patient reached out to a friend about worsening suicidal ideation. Friend called the crisis line, who sent police to check on the patient. Patient was able to contract for safety, but was encouraged to present to the ED if he felt necessary. It is reported that a commercial sales representative from [employer] to check on the patient and asked morning. Before the visit could occur, patient requested that his father bring him to the emergency room for mental health treatment. Patient had verbalized situational stressors of an aunt recently experiencing a stroke and not particularly enjoying his line of work. 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 Patient was assessed in the emergency room, where he verbalize suicidality and was unable to contract for safety. He was admitted voluntarily to our unit for inpatient psychiatric treatment. Patient shares with this provider that he has been noticing worsening depression and increased anxiety for the past 5 months. 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 Patient states that these and other stressors have continued to build over the last several months. He admits that his mood began to significantly worsen in the past 3 months, and was associated with suicidal ideation. Patient states that he had considerations to shoot himself or to cut his wrist. Although patient does not have immediate access to a gun, he does admit that he put consideration into "where I would do it." Patient verbalizes that the main reasons that he did not act on these thoughts was limited motivation to complete tasks in the past several months in combination with "I would think about how I would feel if one of my friends in that. I am sure I would look back and wish that they hadn't." Patient does admit to a previous suicide attempt at the age of 14, in which she overdosed on a bottle of melatonin. Patient states "I had the intention of wanting to , but I was young. I had no concept of certain medications being more potent than others." Patient states he was hospitalized at [place] after the suicide attempt, but did not continue with any outpatient psychiatric treatment. He states medications were not initiated at that time. Patient believes that a lot of his changes in mood are related to situational stressors. At the age of 14, the patient states that he had just transitioned back to [place] from a [employer], and had difficulty coping with the adjustment. Patient denies any significant concerns related to his mood or anxiety in the interim. Patient states that he has been open with some friends about the changes in his mood but states "I had one friend tell me that it was a chemical imbalance in my brain and I needed medications. I was kind of offended after that. I think they are pretty clear reasons why I am feeling the way that I am, and I need to put in the time to get better." The patient verbalizes his main stressors at this time are his job, which she does not particularly enjoy. He states that he is expected to work nearly every day due to understaffing. He reports, "I spent all week thinking about what I want to do on my day off, then my day off comes and I do not do anything." Patient verbalizes depressive symptoms of low mood, anhedonia, decreased appetite, limited motivation, difficulty concentrating, constant feelings of hopelessness, guilt, and suicidal ideation. Patient states that he has a "general negative vibe" about life. Patient also endorses symptoms of anxiety, including racing thoughts, "even thoughts that do not matter", and feeling as though he may "lose control." Patient endorses symptoms consistent with unprovoked panic attacks, which she states occur 3-4 times a week. Patient describes these panic attacks as "a light switch" generally lasting 20 minutes. He endorses symptoms of racing thoughts, tremor, shortness of breath, and tachycardia. Patient states that he believes his issues with low mood and anxiety began "back in eighth grade", but admits they are likely actually si tuational. For example, patient states he was greatly affected by the of his uncle in 10th grade due to an unexpected myocardial infarction. He also describes 10th grade as "the best I felt", as he believed his friends were really connected and he was spending good quality time with them. Pt denies HI, SIB, A/V hallucinations, paranoia, ruthy/hypomania, other symptoms more suggestive of a bipolar presentation, OCD, PTSD, eating disorder, and other specific psychiatric symptoms. On my assessment, he states mood remains low, although he feels safe here. He is interested in therapy and less in medications, stating he is offended by the idea that depression is "just a chemical imbalance in my brain, my problems are real, it's not my fault."Discussed antidepressants in depth including risks, benefits, and what to expect from them. He is hoping to work on coping strategies and says groups have been helpful here. He reports good support from friends and family members. He continues to have suicidal thoughts, but they are "not as detailed and not as often" as they were prior to admission. He is anxious at times, especially in the morning, denies specific trigger. At times feels hopeless, for example thinking he doesn't need to be here, there is no point and it won't help. He is also thinking about his job and feeling that it is not going to work out for him as it is too stressful due to the fast pace, high stress environment, and working daily (although not full days). 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 He slept well last night, notes he went to bed at 10pm which is "the earliest I've gone to bed in a long time." Appetite has improved. He lives with his father and two younger sisters in [place], and states they're "all on such different schedules, never see each other." He feels his father "doesn't really pay attention" and did not know that he was struggling until the night before he came to the hospital. Although his father visited, they did not discuss it, "just a brief chat."He does think it would be helpful to involve his father in treatment. States they don't do much as a family, and he typically spends his time at home playing video games. He describes his relationship with one sister as "fine," but thinks his other sister "hates me, thinks I get everything and she gets nothing." Physical Exam Psychiatric Orientation: alert, oriented x 3 and cooperative (and pleasant) Apperance: appropriately dressed, appropriately groomed (recently showered) and appeared stated age Eye Contact: good eye contact Motor Behavior: steady gait and station and no abnormal motor movements Speech: normal rate/rhythm/volume of speech (somewhat brief responses to questions) Affect: + blunted affect (subdued, timid) Mood: + anxious mood (reports mild anxiety regarding discharge) Thought Process: goal directed thought process, clear/coherent thought process and thought association intact Thought Content: reality based without delusions; no hopelessness Suicidal Thoughts: denies suicidal thoughts ("mostly nonexistant") Homicidal Thoughts: denies homicidal thoughts Hallucinations: no auditory hallucinations and no visual hallucinations Cognition: attention grossly intact and language grossly intact Insight: + fair insight Judgement: good judgement Vital Signs (Past 24 Hours) Last Vital Signs Temp 36.4 C L 01/25/19 06:58 Pulse 81 01/25/19 06:59 Resp 18 01/25/19 06:58 BP 131/85 01/25/19 06:59 Pulse Ox 98 01/21/19 14:11 Principal Diagnosis - Major depressive disorder - Anxiety Psychiatric Data 23-year-old male admitted voluntarily for inpatient psychiatric treatment after presenting to the ED with reports of worsening depression and anxiety for several months. He admitted to for several months. He verbalized concerns about SI to a friend, who reportedly called the crisis line. Pt presented to the ED the next day, per mat worker's recommendation. Pt reported interest in therapy after discharge, but declined recommendation to initiation medications to target his depressive symptoms and anxiety. Education on antidepressant medications was provided for the duration of patient's admission. Pt engaged in group and recreational programming and participated in development of healthy and effective coping strategies. He involved his parents in a family meeting to discuss safety and discharge planning. He applied for medical assistance during the admission, as he lacks insurance presently. Pt was referred to [facility] for assistance with services, but was reportedly did not schedule an intake due to unknown work schedule. Pt was advised to follow up with this service rapidly after discharge to ensure outpatient therapy can be set up. He was provided with EAP information for his place of employment, which is likely to cover several sessions. Pt reports motivation to follow-up with this after discharge. He denies persistent SI and verbalized desire for discharge. Based on review of patient's case and their current presentation, risk of harm to self or others is no longer perceived to be acute. Management of symptoms on an outpatient basis seems the most appropriate and least restrictive setting. Pt seems appropriate for discharge with recommendation for consistent follow-up with outpatient therapist. Pt verbalized understanding of discharge plan reviewed and is agreeable with plan to be discharged home today. Day of Discharge Assessment Patient's case was reviewed and discussed with nursing and social work. Staff report the patient has continued to engage in programming on the unit. He rated his mood a 9/10 and "fresh" last evening. Pt did have a family meeting yesterday. While parents were not overly talkative, they were reportedly supportive of the patient. Pt was seen today to assess readiness for discharge. Pt admits that he had been prepared for discharge tomorrow, after being given a 1-2 day length of stay of Sunday. Despite this, he states he is eager to return home and feels ready today. Pt reports improvement in his mood, and reiterates that he feels his family meeting went well. "I was able to say what I needed to, and I think they heard it." Pt admits that he has found group programming here beneficial and is eager to apply the lessons to his life. Pt is able to verbalize aspects of his safety plan, and he is planning to complete a written copy prior to discharge. Pt tolerated conversation regarding the ongoing use of a safety plan. Pt was encouraged to ensure he is able to contact the [facility] shortly after discharge - as he decided not to schedule an intake appointment during his phone interview due to not knowing his work schedule. Pt states he will be sure to do this, as well as check into his Employee Assistance Program with regard to possible therapy benefits. Pt denies continued SI, and admits to feeling comfortable with discharge today. He denies other needs or concerns prior to discharge. At this time, patient is not perceived to be at [place] risk of harm to himself or others. He is future oriented in conversation. Discharge plan was discussed and patient verbalized understanding. He will return home this afternoon, with transportation being provided by a friend. ROS: Constitutional: denied Cardiovascular: denied Respiratory: denied Gastrointestinal: denied Neurological: denied Psychiatric: denies symptoms other than stated above Total of at least 10 systems reviewed, pertinent positives as above and in HPI. Transition of Care Transition Of Care Record: was reviewed with the patient Advance Directives Advance Directives Information Provided: Yes Advance Directives: No Mental Health Advance Directive: No Advance Directives on File: No Living Will: No Power of Flying Instructor: No Advance Directives Reason:: Declines as Mental Health Visit. Risk Factors Assessment Presenting risk factors reviewed on discharge. Precipitating stressors mitigated by: admission for inpatient psychiatric observation and treatment, education provided on psychiatric medications and potential for benefit in future treatment considerations, attendance of therapeutic treatment groups, development of healthy and effective coping strategies, involvement of outpatient supports, completion of a safety plan, and education on diagnoses. Pt has demonstrated improvement in condition with regard to improvement in mood, engagement in therapeutic interventions, resolution of SI, and involvement of o utpatient supports in discharge and safety planning. At this time, patient is requesting discharge and is no longer considered to be at acute risk of harm to himself or others. Pt will be discharged with recommendation for ongoing outpatient psychiatric treatment. 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) Supportive Family: Yes Tobacco Cessation at Discharge Tobacco Cessation Medication Prescribed at Discharge: Not Applicable/Non-Smoker Total Time Total Time Spent: Greater Than 30 Minutes Total Time Includes: Examination of the patient, Discharge Planning, Medication Reconciliation and Communication with other providers Discharge Data Consultations 01/21/19 12:53 ED Decision to Admit Stat Lab Results 01/21/19 01/21/19 01/21/19 10:24 10:24 10:32 WBC 5.80 RBC 4.41 L Hgb 14.9 Hct 42.6 MCV 96.6 MCH 33.8 MCHC 35.0 RDW Std Deviation 44.3 RDW Coeff of Jarrett 12.5 Plt Count 127 L MPV 11.2 H Immature Gran % (Auto) 0.2 Neut % (Auto) 71.1 Lymph % (Auto) 17.8 [place] % (Auto) 10.2 Eos % (Auto) 0.5 Baso % (Auto) 0.2 Immature Gran # (Auto) 0.01 Neut # (Auto) 4.13 Lymph # (Auto) 1.03 L [place] # (Auto) 0.59 Eos # (Auto) 0.03 Baso # (Auto) 0.01 Sodium Potassium Chloride Carbon Dioxide Anion Gap BUN Creatinine Est Cr Clr Drug Dosing Est GFR ( Amer) Est GFR (Non-Af Amer) BUN/Creatinine Ratio Glucose Calcium Total Bilirubin AST ALT Alkaline Phosphatase Total Protein Albumin Globulin Albumin/Globulin Ratio TSH Urine Color Yellow Urine Appearance Clear Urine pH 6.5 Ur Specific [place] 1.015 Urine Protein Negative Urine Glucose (UA) Negative Urine Ketones Negative Urine Blood Trace H Urine Nitrite Negative Urine Bilirubin Negative Urine Urobilinogen Negative Ur Leukocyte Esterase Negative Urine WBC (Auto) 1-5 Urine RBC (Auto) 0-4 U Hyaline Cast (Auto) 1-5 U Epithel Cells (Auto) 10-20 H Urine Bacteria (Auto) Negative Salicylates Urine Opiates Screen Neg Ur Methadone, Qual Neg Acetaminophen Urine Barbiturates Neg Ur Phencyclidine (PCP) Neg U Amphetamin/Meth Scrn Neg MDMA (Ecstasy) Screen Neg U Benzodiazepines Scrn Neg Ur Cocaine Metabolite Neg U Marijuana (THC) Screen Neg Ethyl Alcohol mg/dL 01/21/19 01/21/19 01/21/19 10:32 10:32 10:32 WBC RBC Hgb Hct MCV MCH MCHC RDW Std Deviation RDW Coeff of Jarrett Plt Count MPV Immature Gran % (Auto) Neut % (Auto) Lymph % (Auto) [place] % (Auto) Eos % (Auto) Baso % (Auto) Immature Gran # (Auto) Neut # (Auto) Lymph # (Auto) [place] # (Auto) Eos # (Auto) Baso # (Auto) Sodium 141 Potassium 3.4 L Chloride 108 H Carbon Dioxide 28 Anion Gap 5.0 BUN 7 Creatinine 0.87 Est Cr Clr Drug Dosing 166.7 Est GFR ( Amer) 142.0 Est GFR (Non-Af Amer) 122.5 BUN/Creatinine Ratio 7.7 L Glucose 88 Calcium 8.8 Total Bilirubin 1.2 H AST 14 L ALT 15 Alkaline Phosphatase 57 Total Protein 7.0 Albumin 3.9 Globulin 3.1 Albumin/Globulin Ratio 1.3 TSH 0.600 Urine Color Urine Appearance Urine pH Ur Specific [place] Urine Protein Urine Glucose (UA) Urine Ketones Urine Blood Urine Nitrite Urine Bilirubin Urine Urobilinogen Ur Leukocyte Esterase Urine WBC (Auto) Urine RBC (Auto) U Hyaline Cast (Auto) U Epithel Cells (Auto) Urine Bacteria (Auto) Salicylates < 1.7 L Urine Opiates Screen Ur Methadone, Qual Acetaminophen < 2 L Urine Barbiturates Ur Phencyclidine (PCP) U Amphetamin/Meth Scrn MDMA (Ecstasy) Screen U Benzodiazepines Scrn Ur Cocaine Metabolite U Marijuana (THC) Screen Ethyl Alcohol mg/dL < 3.0 Hospital Course (1) Suicidal ideation: 01/21 - Admitted to a locked inpatient behavioral health unit, on q15 minute safety checks - Encourage medication initiation/adjustments as indicated - Encourage participation in group and recreational therapies - Gather collateral information from outpatient providers - Suggest family meeting to involve outpatient supports in safety planning - Arrange appropriate aftercare 01/22 - Continues to have suicidal thoughts, but lessened from admission. 01/23 - Pt reports thoughts of "I want to be ", but denies plan of "detailed thoughts" 01/24 - Pt reports thoughts again last evening of "I want to ", but states the are not lingering as long and are not as strong (2) Depression: 01/21 - Differential diagnoses include: major depressive disorder, dysthymic disorder, adjustment disorder, and other mood disorder. At this time, patient states he is not interested in initiating antidepressant medications - reporting a preference for therapeutic interventions initially. - Pt was cooperative with conversation regarding education on indication for antidepressant medications - Pt is agreeable to outpatient therapy after discharge - Gather collateral information from outpatient supports - Involve outpatient supports in a family meeting - Complete safety and discharge planning 01/22 -Meets criteria for major depression. Discussed treatment options, including role of medication, therapy, stress management techniques, importance of utilizing his supports, and making time for relaxation activities he enjoys. D iscussed what the antidepressant medication can do, the risks and benefits, and he agreed to consider medication if symptoms are not improving. In the meantime, continue to involve him in groups and therapy, refer for outpatient therapy, and schedule a family meeting with his father. 01/23 - Continue to encourage engagement in group and recreational programming - Pt continues to verbalize desire to reserve psychiatric medication initiation for inability to address symptoms with therapy alone - Family meeting with mother and father scheduled for tomorrow afternoon 01/24 - Continue engagement in group programming - Continue to coordinate options for outpatient therapy (3) Anxiety: 01/21 - Therapeutic interventions; as patient is declining initiation of psychiatric medications - Encourage attendance of group and recreational programming - Assist in development of healthy and effective coping strategies - Hydroxyzine 25mg q4h prn as standing admission order for acute anxiety Mental Health & Subst Abuse Tx Therapist Name of Therapist: [facility] Employee Assistance Program Therapist's Therapy Appointment Comment: [email or web address] Login: melinda Password [phone] Gambling Broker [place] of Gambling Broker[place] [facility] [place] Phone Number for Gambling Broker: [phone] Time of Appointment with Gambling Broker: Will follow up with you to schedule with the rn case managerindustrial production manager Appointment Comment: [address] [facility], [address], [place] [address] Post Discharge Appointments Primary Care Physician Name Of Family Doctor: [facility] - Dr. Rodriguez Primary Care Time of Appointment with PCP: Follow up as needed Provider Appointment Comment: [address] [place] [address] [place] [address] Smoking Cessation Counseling Tobacco Cessation Medication Prescribed at Discharge: Not Applicable/Non-Smoker Contact Information Discharge Discharge [address]: [address] [place] [id number] Discharge Plan Discharge Items Patient Disposition: Home - Self-Care Reason For Visit: DEPRESSION NOS Discharge Diagnosis: Depression Condition on Discharge: Good Activity: Resume your previous activity Non-emergency contact: Primary Care Provider, Psychiatrist and Therapist Call non-emergency contact if: you have any medication questions Follow-up/Referrals: Mikel Rodriguez MD [Primary Care Provider] - Diet: Regular Addtl Attending Provider Instructions: SPECIAL CARE INSTRUCTIONS: 1. Follow through with your scheduled aftercare appointments. If unable to keep an appointment, please call to reschedule. 2. Take your medication only as prescribed. Medication should not be changed or stopped without the approval of your doctor. In the event of worsening symptoms or concerns about side effects, contact your doctor immediately. 3. Utilize new healthy coping skills, anger management skills, and stress management skills learned during your hospitalization. Journal feelings and process them with a support person. Identify stressors or situations that may result in relapse, deterioration or inappropriate behaviors and develop a plan to deal with those issues. 4. If your coping skills are ineffective and you are in crisis, contact your outpatient providers for direction. If unable to reach your providers, please call the CAN HELP LINE AT or go to the closest Emergency Room. 5. Avoid alcohol and un-prescribed drugs. 6. You have been provided with the Mental Health Advance Directives Pamphlet for your review. AFTERCARE APPOINTMENTS: * Please call your insurance company prior to your scheduled appointment to confirm your aftercare providers are covered. Take your insurance information to your appointments. WHO TO CALL AND WHEN: Medical Emergencies: For questions or emergencies related to your hospital stay, please contact the Inpatient Behavioral Health Unit at [phone]. A line tender flakeboard is on-call 09/10 for the Behavioral Health Unit for emergencies At any time you feel your situation is an emergency, you may also call 911 immediately. Your Discharge Instructions noted above were prepared by provider Sissy Regan PA-C. Pending Studies at Discharge: No Stand-Alone Forms: [facility], Smoking Cessation, Suicide Prevention Resources Medications and DC Order Prescriptions: No Action No Known Home Medications RF: 0 Discharge Orders: Discharge Order (Routine); Ordered 01/25/19 Ordered By: Sissy Regan Admission Data Admit Date/Time: 01/21/19 13:17 Attending Provider: Tabby Smith Admit Provider: Tabby Smith Primary Care Provider: Mikel Rodriguez Other Providers: Tabby Smith Other Interventions: Discharge Summary Assessment (RN) Last Done: 01/25/19 12:05 PSY Interdisciplinary Discharge Planning Last Done: 01/25/19 12:05 DC Date/Time DO NOT enter until pt leaves facility: 01/25/19 13:20 Coding Level of Care Code 32781 D/C day mgmt > 30 min Diagnoses Suicidal ideation R45.851 Depression F32.9 Depression Type: unspecified Anxiety F41.9
== END 2019-01-25 13:20 | disposition home or self-care (01) | DRG 881 ==
LOC: ED 09:50 → 3S 13:10